=== PATIENT | male | born 1965 | race African-American/Black ===

== ENCOUNTER 2018-04-16 15:14 | Inpatient (IN) | payer OTHER ==
[2018-04-16 16:00] VITALS: BMI 22.7
--- NOTE | 2018-04-16 19:55 | HP ---
CIWA Score - CIWA Score Nausea/Vomitin-Mild Nausea/No Vomiting Muscle Tremors: 2 Anxiety: 2 Agitation: 1-Slight > Activity Paroxysmal Sweats: 1-Minimal Palms Moist Orientation: 1-Uncertain about Date Tacttile Disturbances: 1-Very Mild Itch/Numbness Auditory Disturbances: 1-Very Mild Visual Disturbances: 1-Very Mild Sensitivity Headache: 1-Very Mild CIWA-Ar Total Score: 12 Admission ROS S - HPI Chief Complaint: WITHDRAWAL SYMPTOMS Allergies/Adverse Reactions: Allergies Allergy/AdvReac Type Severity Reaction Status Date / Time No Known Allergies Allergy Verified 04/16/18 19:53 History of Present Illness: 52 Y.O. MAN WITH AN EXTENSIVE HISTORY OF ALCOHOL AND COCAINE DEPENDENCE IS HERE SEEKING DETOX. HIS LAST ADMISSION TO DETOX WAS HERE IN 2010. LONGEST PERIOD OF SOBRIETY HAS BEEN 3 YEARS. Exam Limitations: No Limitations - Ebola screening Have you traveled outside of the country in the last 21 days: No Have you had contact with anyone from an Ebola affected area: No Have you been sick,other than usual withdrawal symptoms: No - Review of Systems Constitutional: Chills, Diaphoresis, Loss of Appetite, Unintentional Wgt. Loss EENT: reports: Tearing, Nose Congestion Respiratory: reports: Shortness of Breath Cardiac: reports: No Symptoms Reported GI: reports: Diarrhea, Abdominal cramping : reports: No Symptoms Reported Musculoskeletal: reports: Joint Pain Integumentary: reports: No Symptoms Reported Neuro: reports: Headache, Other (ALCOHOL RELATED SYNCOPE) Endocrine: reports: No Symptoms Reported Hematology: reports: No Symptoms Reported Psychiatric: reports: Mood/Affect Appropiate, Anxious Other Systems: Reviewed and Negative Patient History - Patient Medical History Hx Anemia: No Hx Asthma: Yes (ALBUTEROL ) Hx Chronic Obstructive Pulmonary Disease (COPD): No Hx Cancer: No Hx Cardiac Disorders: No Hx Congestive Heart Failure: No Hx Hypertension: No Hx Hypercholesterolemia: No Hx Pacemaker: No HX Cerebrovascular Accident: No Hx Seizures: No (H/O BLACKOUTS) Hx Dementia: No Hx Diabetes: No Hx Gastrointestinal Disorders: No Hx Liver Disease: No Hx Genitourinary Disorders: No Hx Sexually Transmitted Disorders: No Hx Renal Disease (ESRD): No Hx Thyroid Disease: No Hx Human Immunodeficiency Virus (HIV): Yes (DX: 1993 CD4:325 2 MONTHS AGO ) Hx Hepatitis C: No Hx Depression: Yes Hx Suicide Attempt: No Hx Bipolar Disorder: No Hx Schizophrenia: No - Patient Surgical History Past Surgical History: Yes Other Surgical History: Hemangioma of face Anesthesia Reaction: No - PPD History Previous Implant?: Yes Documented Results: Positive w/o proof Implanted On Prior [facility] Admission?: No Results: NEED CXR PPD to be Administered?: No - Reproductive History Patient : No - Smoking Cessation Smoking history: Current every day smoker Have you smoked in the past 12 months: Yes Aproximately how many cigarettes per day: 10 Hx Chewing Tobacco Use: No Initiated information on smoking cessation: Yes 'Breaking Loose' booklet given: 04/16/18 - Substance & Tx. History Hx Alcohol Use: Yes Hx Substance Use: Yes Substance Use Type: Alcohol, Cocaine Hx Substance Use Treatment: Yes (DETOX: 02/2011) - Substances Abused Alcohol Route: Oral Frequency: Daily Amount used: 5TH VODKA- 2/6 PACK BEER Age of first use: 26 Date of Last Use: 04/16/18 Cocaine Route: Smoking Frequency: Daily Amount used: $200 Age of first use: 20 Date of Last Use: 04/16/18 Family Disease History - Family Disease History Family Disease History: Diabetes: Grandparent ( ), Mother ( ), Heart Disease: Grandparent, Father ( ), CA: Mother, Respiratory: Grandparent, Mother, Other: Father Admission Physical Exam S - Vital Signs Vital Signs: Vital Signs - 24 hr 04/16/18 15:58 Temperature 97.9 F Pulse Rate 100 H Respiratory 21 H Rate Blood Pressure 110/66 - Physical General Appearance: Yes: Sweating, Anxious HEENTM: Yes: Hearing grossly Normal, Muffled/Hoarse Voice, Other (MISSING TEETH ; MULTIPLE FACIAL SX FOR HEMANGIOMA REMOVAL) Respiratory: Yes: Wheezing Neck: Yes: No masses,lesions,Nodules, Trachea in good position Breast: Yes: Breast Exam Deferred Cardiology: Yes: Regular Rhythm, Regular Rate Abdominal: Yes: Normal Bowel Sounds, Non Tender, Flat, Soft Genitourinary: Yes: Within Normal Limits Back: Yes: Within Normal Limits, Normal Inspection Musculoskeletal: Yes: full range of Motion, Gait Steady, Pelvis Stable Extremities: Yes: Normal Capillary Refill, Normal Inspection, Normal Range of Motion, Non-Tender 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, Fully Oriented, Alert, Normal Mood/ Affect, Normal Response Integumentary: Yes: Normal Color, Dry, Warm Lymphatic: Yes: Within Normal Limits - Diagnostic (1) Hemangioma of face Current Visit: Yes Status: Chronic (2) HIV (human immunodeficiency virus infection) Current Visit: Yes Status: Chronic (3) Asthma Current Visit: Yes Status: Chronic (4) Syncope Current Visit: Yes Status: Chronic (5) Nicotine dependence Current Visit: Yes Status: Chronic (6) Cocaine dependence in controlled environment Current Visit: Yes Status: Acute (7) History of positive PPD Current Visit: Yes Status: Chronic Cleared for Admission [facility] - Detox or Rehab [facility] Level of Care: Medically Managed Detox Regimen/Protocol: Librium [facility] Breath Alcohol Content Breath Alcohol Content: 0.043 Urine Drug Screen - Results Drug Screen Negative: No Urine Drug Screen Results: HELGA-Cocaine
[2018-04-16] MEDS ORDERED: P-EPHED 60MG/TRIPROLIDI 2.5MG TABLET PO PRN (20:07)
[2018-04-16] MEDS ORDERED: MAGNESIUM HYDROX 2400MG/30ML ORAL SUSPENSION 30 ML CUP PO PRN (20:07)
[2018-04-16] MEDS ORDERED: IBUPROFEN 400 MG TABLET (FP) PO PRN (20:07)
[2018-04-16] MEDS ORDERED: chlordiazePOXIDE HCL 25 MG CAPSULE PO PRN (20:07)
[2018-04-16] MEDS ORDERED: MENTHOL/PHENOL 1 EACH UD MM PRN (20:07)
[2018-04-16] MEDS ORDERED: MAGNESIUM CITRATE 300 ML BOTTLE PO PRN (20:07)
[2018-04-16] MEDS ORDERED: MAG HYDROX/AL HYDROX/SIMETH 30 ML UNIT-DOSE CUP PO PRN (20:07)
[2018-04-16] MEDS ORDERED: hydrOXYzine PAMOATE 50 MG CAPSULE (FP) PO PRN (20:07)
[2018-04-16] MEDS ORDERED: ACETAMINOPHEN 325 MG TABLET (FP) PO PRN (20:07)
[2018-04-16] MEDS ORDERED: guaiFENesin/D-METHORPHAN HB 10 ML UNIT-DOSE CUPS PO PRN (20:07)
[2018-04-16] MEDS ORDERED: LOPERAMIDE HCL 2 MG CAPSULE PO PRN (20:07)
[2018-04-16] MEDS ORDERED: ALBUTEROL SO4 8 GM HFA INHALER IH PRN (20:09)
[2018-04-16] MEDS ORDERED: chlordiazePOXIDE HCL 25 MG CAPSULE PO ONE (20:30)
[2018-04-16] MEDS ORDERED: MELATONIN 5 MG TABLETS PO PRN (22:00)
[2018-04-16] MEDS: chlordiazePOXIDE HCL 25 MG CAPSULE PO SCH (22:39)
[2018-04-16] MEDS: THIAMINE HCL 100 MG TABLET (FP) PO SCH (22:39)
[2018-04-17] MEDS: chlordiazePOXIDE HCL 25 MG CAPSULE PO SCH ×4 (05:37→22:06)
[2018-04-17] MEDS: NICOTINE 14 MG/24 HOURS TOPICAL PATCH TD SCH (10:49)
[2018-04-17] MEDS: DARUNAVIR ETHANOLATE 800 MG TAB PO SCH (10:49)
[2018-04-17] MEDS: PRENATAL VITAMINS W/ FOLIC ACID TABLET (FP) PO SCH (10:49)
[2018-04-17 10:50] LABS: HEMATOCRIT 43.4 % (35.4-49); HEMOGLOBIN 14.2 GM/dL (11.7-16.9); MCH 30.3 pg (25.7-33.7); MCHC 32.6 g/dl (32.0-35.9); MEAN CELL VOLUME 93.1 fl (80-96); MEAN PLT VOLUME 11.1 fl (7.5-11.1); PLATELET COUNT 165 K/MM3 (134-434); RBC 4.67 M/mm3 (4.00-5.60); WHITE BLOOD COUNT 3.8 K/mm3 (4.0-10.0)
[2018-04-17] MEDS: EMTRICITABINE 200MG/TENOFOVIR 300MG PO SCH (10:50)
[2018-04-17] MEDS: RITONAVIR 100 MG TABLET PO SCH (10:51)
[2018-04-17 10:52] LABS: URINE APPEARANCE TURBID; URINE BILIRUBIN NEGATIVE (<2.0 mg/dL); URINE GLUCOSE (UA) NEGATIVE (NEGATIVE); URINE KETONE NEGATIVE (NEGATIVE); URINE LEUK ESTERASE NEGATIVE (NEGATIVE); URINE NITRITE NEGATIVE (NEGATIVE); URINE PROTEIN NEGATIVE (NEGATIVE); URINE UROBILINOGEN NEGATIVE mg/dL (0.2-1.0)
[2018-04-17] MEDS: NICOTINE POLACRILEX 2 MG GUM BC PRN (10:55)
[2018-04-17 11:09] LABS: URINE COLOR YELLOW
[2018-04-17 11:32] LABS: ALBUMIN 3.2 g/dl (3.4-5.0); ALK PHOS 131 U/L (45-117); ANION GAP 10 MMOL/L (8-16); BILIRUBIN,TOTAL 0.7 mg/dL (0.2-1); BLOOD UREA NITROGEN 14 mg/dL (7-18); CALCIUM 8.8 mg/dL (8.5-10.1); CHLORIDE 104 mmol/L (98-107); CO2 27 mmol/L (21-32); CREATININE 1.1 mg/dL (0.55-1.3); GLUCOSE,RANDOM 72 mg/dL (74-106); POTASSIUM 4.1 mmol/L (3.5-5.1); SGOT/AST 37 U/L (15-37); SGPT/ALT 26 U/L (13-61); SODIUM 140 mmol/L (136-145); TOT PROT 7.9 g/dl (6.4-8.2)
--- NOTE | 2018-04-17 12:11 | PN ---
S CIWA - CIWA Score Nausea/Vomitin Muscle Tremors: 2 Anxiety: 2 Agitation: 2 Paroxysmal Sweats: 2 Orientation: 0-Oriented Tacttile Disturbances: 2-Mild Itch/Numbness/Burn Auditory Disturbances: 0-None Visual Disturbances: 0-None Headache: 2-Mild CIWA-Ar Total Score: 14 S Progress Note (SOAP) Subjective: Interrupted sleep, muscle ache and tremors Objective: 04/17/18 12:09 Vital Signs - 8 hr 04/17/18 04/17/18 06:00 10:08 Temperature 97.7 F 97.5 F L Pulse Rate 91 H 80 Respiratory 16 18 Rate Blood Pressure 123/78 129/87 Laboratory Last Values WBC 3.8 K/mm3 (4.0-10.0) L 04/17/18 07:50 RBC 4.67 M/mm3 (4.00-5.60) 04/17/18 07:50 Hgb 14.2 GM/dL (11.7-16.9) 04/17/18 07:50 Hct 43.4 % (35.4-49) 04/17/18 07:50 MCV 93.1 fl (80-96) 04/17/18 07:50 MCH 30.3 pg (25.7-33.7) 04/17/18 07:50 MCHC 32.6 g/dl (32.0-35.9) 04/17/18 07:50 RDW 14.0 % (11.9-15.9) 04/17/18 07:50 Plt Count 165 K/MM3 (134-434) 04/17/18 07:50 MPV 11.1 fl (7.5-11.1) 04/17/18 07:50 Sodium 140 mmol/L (136-145) 04/17/18 07:50 Potassium 4.1 mmol/L (3.5-5.1) 04/17/18 07:50 Chloride 104 mmol/L (98-107) 04/17/18 07:50 Carbon Dioxide 27 mmol/L (21-32) 04/17/18 07:50 Anion Gap 10 MMOL/L (8-16) 04/17/18 07:50 BUN 14 mg/dL (7-18) 04/17/18 07:50 Creatinine 1.1 mg/dL (0.55-1.3) 04/17/18 07:50 Creat Clearance w eGFR > 60 (>60) 04/17/18 07:50 Random Glucose 72 mg/dL (74-106) L 04/17/18 07:50 Calcium 8.8 mg/dL (8.5-10.1) 04/17/18 07:50 Total Bilirubin 0.7 mg/dL (0.2-1) 04/17/18 07:50 AST 37 U/L (15-37) 04/17/18 07:50 ALT 26 U/L (13-61) 04/17/18 07:50 Alkaline Phosphatase 131 U/L (45-117) H 04/17/18 07:50 Total Protein 7.9 g/dl (6.4-8.2) 04/17/18 07:50 Albumin 3.2 g/dl (3.4-5.0) L 04/17/18 07:50 Urine Color Yellow 04/17/18 08:50 Urine Appearance Turbid 04/17/18 08:50 Urine pH 5.0 (5.0-8.0) 04/17/18 08:50 Ur Specific [place] 1.015 (1.001-1.035) 04/17/18 08:50 Urine Protein Negative (NEGATIVE) 04/17/18 08:50 Urine Glucose (UA) Negative (NEGATIVE) 04/17/18 08:50 Urine Ketones Negative (NEGATIVE) 04/17/18 08:50 Urine Blood Negative (NEGATIVE) 04/17/18 08:50 Urine Nitrite Negative (NEGATIVE) 04/17/18 08:50 Urine Bilirubin Negative (<2.0 mg/dL) 04/17/18 08:50 Urine Urobilinogen Negative mg/dL (0.2-1.0) 04/17/18 08:50 Ur Leukocyte Esterase Negative (NEGATIVE) 04/17/18 08:50 Lbas noted Assessment: 04/17/18 12:10 Withdrawal sx Plan: Continue detox
--- NOTE | 2018-04-17 15:41 | EKG ---
Test Reason : Blood Pressure : / mmHG Vent. Rate : 099 BPM Atrial Rate : 099 BPM P-R Int : 140 ms QRS Dur : 082 ms QT Int : 344 ms P-R-T Axes : 052 049 028 degrees QTc Int : 441 ms NORMAL SINUS RHYTHM T WAVE ABNORMALITY, CONSIDER ANTERIOR ISCHEMIA ABNORMAL ECG NO PREVIOUS ECGS AVAILABLE Confirmed by MD Ronnie, Kory ([id number]) on 04/17/2018 3:40:53 PM Referred By: Confirmed By:Kory Trujillo MD
--- NOTE | 2018-04-17 18:00 | CONSULT ---
[facility] Psychiatric Consult - Data Date of interview: 04/17/18 Admission source: [facility] Identifying data: Readmission to [facility] for this 52 y/o AA male self- referred for detoxification treatment (alcohol,cocaine dependence).Admitted to [address] [place] [address].Patient is single,a father of one,domiciled,unemployed and supported on SSI benefits. Substance Abuse History: Confirmed by the patient in this session.Details in current [facility] report : Smoking history: Current every day smoker. Have you smoked in the past 12 months: Yes. Aproximately how many cigarettes per day: 10. Hx Chewing Tobacco Use: No. Initiated information on smoking cessation: Yes. 'Breaking Loose' booklet given: 04/16/18. - Substance & Tx. History. Hx Alcohol Use: Yes. Hx Substance Use: Yes. Substance Use Type: Alcohol, Cocaine. Hx Substance Use Treatment: Yes (DETOX: 02/2011). - Substances Abused. Alcohol. Route: Oral. Frequency: Daily. Amount used: 5TH VODKA- 2 /6 PACK BEER. Age of first use: 26. Date of Last Use: 04/16/18. Cocaine. Route: Smoking. Frequency: Daily. Amount used: $200. Age of first use: 20. Date of Last Use: 04/16/18 Medical History: HIV infection since 1993 (on HAART medications),bronchial asthma and a history of surgery for facial hemangioma. Psychiatric History: No reported history of psychiatric hospitalizations.Patient states that he has been diagnosed with Bipolar Disorder.Mr Peterson is currently seeing a psychiatrist at the [facility] in the [place].Prescribed seroquel 50 mg/hs.Patient denies history of suicide attempts. Physical/Sexual Abuse/Trauma History: Patient denies. Additional Comment: Urine Drug Screen Results: HELGA-Cocaine.Noted. Mental Status Exam - Mental Status Exam Alert and Oriented to: Time, Place, Person Cognitive Function: Good Patient Appearance: Well Groomed (poor oral hygiene) Mood: Hopeful, Euthymic Affect: Appropriate, Normal Range Patient Behavior: Appropriate (pleasant), Cooperative Speech Pattern: Clear Voice Loudness: Normal Thought Process: Intact, Goal Oriented Thought Disorder: Not Present Hallucinations: Denies Suicidal Ideation: Denies Homicidal Ideation: Denies Insight/Judgement: Poor Sleep: Poorly, Difficulty falling asleep Appetite: Good Muscle strength/Tone: Normal Gait/Station: Normal Psychiatric Findings - Problem List ([place] 1, 2,3) (1) Alcohol dependence with withdrawal Current Visit: Yes Status: Acute Qualifiers: Complication of substance-induced condition: uncomplicated Qualified Code(s ): F10.230 - Alcohol dependence with withdrawal, uncomplicated (2) Cocaine dependence in controlled environment Current Visit: Yes Status: Acute (3) Nicotine dependence Current Visit: Yes Status: Acute Qualifiers: Nicotine product type: cigarettes Substance use status: uncomplicated Qualified Code(s): F17.210 - Nicotine dependence, cigarettes, uncomplicated (4) Insomnia Current Visit: Yes Status: Acute - Initial Treatment Plan Initial Treatment Plan: Psychoeducation.Sleep hygiene.Detoxification in progress.Seroquel 50 mg po hs.Side effects/benefits discussed with the patient.Mr Peterson is in agreement with this careplan.Observation.
[2018-04-17] MEDS: THIAMINE HCL 100 MG TABLET (FP) PO SCH (22:06)
[2018-04-17] MEDS: QUEtiapine FUMARATE 50 MG TABLET PO SCH (22:06)
[2018-04-18] MEDS: chlordiazePOXIDE HCL 25 MG CAPSULE PO SCH ×3 (05:35→17:30)
[2018-04-18] MEDS: NICOTINE 14 MG/24 HOURS TOPICAL PATCH TD SCH (10:40)
[2018-04-18] MEDS: EMTRICITABINE 200MG/TENOFOVIR 300MG PO SCH (10:40)
[2018-04-18] MEDS: DARUNAVIR ETHANOLATE 800 MG TAB PO SCH (10:40)
[2018-04-18] MEDS: PRENATAL VITAMINS W/ FOLIC ACID TABLET (FP) PO SCH (10:41)
[2018-04-18] MEDS: RITONAVIR 100 MG TABLET PO SCH (10:41)
[2018-04-18] MEDS: NICOTINE POLACRILEX 2 MG GUM BC PRN ×2 (10:44→22:42)
--- NOTE | 2018-04-18 16:28 | PN ---
S CIWA - CIWA Score Nausea/Vomitin-Mild Nausea/No Vomiting Muscle Tremors: 4-Moderate,w/Arms Extend Anxiety: 3 Agitation: 2 Paroxysmal Sweats: 1-Minimal Palms Moist Orientation: 0-Oriented Tacttile Disturbances: 1-Very Mild Itch/Numbness Auditory Disturbances: 0-None Visual Disturbances: 0-None Headache: 0-None Present CIWA-Ar Total Score: 12 [facility] Progress Note (SOAP) Subjective: sweat tremor restlessness anxiety Objective: 04/18/18 16:27 Vital Signs Temperature 97.9 F 04/18/18 15:05 Pulse Rate 100 H 04/18/18 15:05 Respiratory Rate 18 04/18/18 15:05 Blood Pressure 121/82 04/18/18 15:05 O2 Sat by Pulse Oximetry (%) Laboratory Last Values WBC 3.8 K/mm3 (4.0-10.0) L 04/17/18 07:50 RBC 4.67 M/mm3 (4.00-5.60) 04/17/18 07:50 Hgb 14.2 GM/dL (11.7-16.9) 04/17/18 07:50 Hct 43.4 % (35.4-49) 04/17/18 07:50 MCV 93.1 fl (80-96) 04/17/18 07:50 MCH 30.3 pg (25.7-33.7) 04/17/18 07:50 MCHC 32.6 g/dl (32.0-35.9) 04/17/18 07:50 RDW 14.0 % (11.9-15.9) 04/17/18 07:50 Plt Count 165 K/MM3 (134-434) 04/17/18 07:50 MPV 11.1 fl (7.5-11.1) 04/17/18 07:50 Sodium 140 mmol/L (136-145) 04/17/18 07:50 Potassium 4.1 mmol/L (3.5-5.1) 04/17/18 07:50 Chloride 104 mmol/L (98-107) 04/17/18 07:50 Carbon Dioxide 27 mmol/L (21-32) 04/17/18 07:50 Anion Gap 10 MMOL/L (8-16) 04/17/18 07:50 BUN 14 mg/dL (7-18) 04/17/18 07:50 Creatinine 1.1 mg/dL (0.55-1.3) 04/17/18 07:50 Creat Clearance w eGFR > 60 (>60) 04/17/18 07:50 Random Glucose 72 mg/dL (74-106) L 04/17/18 07:50 Calcium 8.8 mg/dL (8.5-10.1) 04/17/18 07:50 Total Bilirubin 0.7 mg/dL (0.2-1) 04/17/18 07:50 AST 37 U/L (15-37) 04/17/18 07:50 ALT 26 U/L (13-61) 04/17/18 07:50 Alkaline Phosphatase 131 U/L (45-117) H 04/17/18 07:50 Total Protein 7.9 g/dl (6.4-8.2) 04/17/18 07:50 Albumin 3.2 g/dl (3.4-5.0) L 04/17/18 07:50 Urine Color Yellow 04/17/18 08:50 Urine Appearance Turbid 04/17/18 08:50 Urine pH 5.0 (5.0-8.0) 04/17/18 08:50 Ur Specific [place] 1.015 (1.001-1.035) 04/17/18 08:50 Urine Protein Negative (NEGATIVE) 04/17/18 08:50 Urine Glucose (UA) Negative (NEGATIVE) 04/17/18 08:50 Urine Ketones Negative (NEGATIVE) 04/17/18 08:50 Urine Blood Negative (NEGATIVE) 04/17/18 08:50 Urine Nitrite Negative (NEGATIVE) 04/17/18 08:50 Urine Bilirubin Negative (<2.0 mg/dL) 04/17/18 08:50 Urine Urobilinogen Negative mg/dL (0.2-1.0) 04/17/18 08:50 Ur Leukocyte Esterase Negative (NEGATIVE) 04/17/18 08:50 RPR Titer Nonreactive (NONREACTIVE) 04/17/18 07:50 lab noted Assessment: 04/18/18 16:28 withdrawal sx Plan: continue detox
[2018-04-18] MEDS: chlordiazePOXIDE 5 MG CAPSULE PO SCH (22:41)
[2018-04-18] MEDS: THIAMINE HCL 100 MG TABLET (FP) PO SCH (22:41)
[2018-04-18] MEDS: QUEtiapine FUMARATE 50 MG TABLET PO SCH (22:41)
[2018-04-19] MEDS: chlordiazePOXIDE 5 MG CAPSULE PO SCH ×3 (05:54→17:56)
[2018-04-19] MEDS: PRENATAL VITAMINS W/ FOLIC ACID TABLET (FP) PO SCH (10:14)
[2018-04-19] MEDS: RITONAVIR 100 MG TABLET PO SCH (10:14)
[2018-04-19] MEDS: EMTRICITABINE 200MG/TENOFOVIR 300MG PO SCH (10:14)
[2018-04-19] MEDS: DARUNAVIR ETHANOLATE 800 MG TAB PO SCH (10:14)
[2018-04-19] MEDS: NICOTINE 14 MG/24 HOURS TOPICAL PATCH TD SCH (10:15)
[2018-04-19] MEDS: NICOTINE POLACRILEX 2 MG GUM BC PRN (10:16)
--- NOTE | 2018-04-19 15:22 | PN ---
[facility] Progress Note (SOAP) Subjective: Occ nausea. Denies vomiting or diarrhea. Still having some shakes. Objective: A & O x3. Abd S/NT. BS+. Mild tremors of hands. 04/19/18 15:21 Vital Signs 04/19/18 04/19/18 09:16 13:52 Temperature 97.5 F L 97.3 F L Pulse Rate 91 H 111 H Respiratory 16 18 Rate Blood Pressure 100/60 111/72 Laboratory Tests 04/17/18 04/17/18 04/17/18 07:50 07:50 07:50 WBC 3.8 L RBC 4.67 Hgb 14.2 Hct 43.4 MCV 93.1 MCH 30.3 MCHC 32.6 RDW 14.0 Plt Count 165 MPV 11.1 Sodium 140 Potassium 4.1 Chloride 104 Carbon Dioxide 27 Anion Gap 10 BUN 14 Creatinine 1.1 Creat Clearance w eGFR > 60 Random Glucose 72 L Calcium 8.8 Total Bilirubin 0.7 AST 37 ALT 26 Alkaline Phosphatase 131 H Total Protein 7.9 Albumin 3.2 L Urine Color Urine Appearance Urine pH Ur Specific [place] Urine Protein Urine Glucose (UA) Urine Ketones Urine Blood Urine Nitrite Urine Bilirubin Urine Urobilinogen Ur Leukocyte Esterase RPR Titer Nonreactive 04/17/18 08:50 WBC RBC Hgb Hct MCV MCH MCHC RDW Plt Count MPV Sodium Potassium Chloride Carbon Dioxide Anion Gap BUN Creatinine Creat Clearance w eGFR Random Glucose Calcium Total Bilirubin AST ALT Alkaline Phosphatase Total Protein Albumin Urine Color Yellow Urine Appearance Turbid Urine pH 5.0 Ur Specific [place] 1.015 Urine Protein Negative Urine Glucose (UA) Negative Urine Ketones Negative Urine Blood Negative Urine Nitrite Negative Urine Bilirubin Negative Urine Urobilinogen Negative Ur Leukocyte Esterase Negative RPR Titer Labs reviewed. Assessment: Withdrawal symptoms. Plan: Continue detox.
[2018-04-19] MEDS: chlordiazePOXIDE HCL 10 MG CAPSULE PO SCH (22:26)
[2018-04-19] MEDS: THIAMINE HCL 100 MG TABLET (FP) PO SCH (22:26)
[2018-04-19] MEDS: QUEtiapine FUMARATE 50 MG TABLET PO SCH (22:26)
[2018-04-20] MEDS: chlordiazePOXIDE HCL 10 MG CAPSULE PO SCH (06:17)
--- NOTE | 2018-04-20 08:31 | DS ---
[facility] Detox Discharge Summary Admission Date: 04/16/18 Discharge Date: 04/20/18 - History Present History: Alcohol Dependence Additional Comments: 52 years old male admitted 04/16/18 for alcohol withdrawal sx completed detox regimen tolerated well denies alcohol withdrawal sx alert oriented x 3 no acute distress aftercare [facility] - Physical Exam Results Vital Signs: Vital Signs Temperature 97.2 F L 04/20/18 06:51 Pulse Rate 71 04/20/18 06:51 Respiratory Rate 20 04/20/18 06:51 Blood Pressure 107/72 04/20/18 06:51 O2 Sat by Pulse Oximetry (%) Pertinent Admission Physical Exam Findings: alcohol withdrawal sx Vital Signs Temperature 96.9 F L 04/20/18 13:11 Pulse Rate 105 H 04/20/18 13:11 Respiratory Rate 18 04/20/18 13:11 Blood Pressure 112/64 04/20/18 13:11 O2 Sat by Pulse Oximetry (%) Laboratory Last Values WBC 3.8 K/mm3 (4.0-10.0) L 04/17/18 07:50 RBC 4.67 M/mm3 (4.00-5.60) 04/17/18 07:50 Hgb 14.2 GM/dL (11.7-16.9) 04/17/18 07:50 Hct 43.4 % (35.4-49) 04/17/18 07:50 MCV 93.1 fl (80-96) 04/17/18 07:50 MCH 30.3 pg (25.7-33.7) 04/17/18 07:50 MCHC 32.6 g/dl (32.0-35.9) 04/17/18 07:50 RDW 14.0 % (11.9-15.9) 04/17/18 07:50 Plt Count 165 K/MM3 (134-434) 04/17/18 07:50 MPV 11.1 fl (7.5-11.1) 04/17/18 07:50 Sodium 140 mmol/L (136-145) 04/17/18 07:50 Potassium 4.1 mmol/L (3.5-5.1) 04/17/18 07:50 Chloride 104 mmol/L (98-107) 04/17/18 07:50 Carbon Dioxide 27 mmol/L (21-32) 04/17/18 07:50 Anion Gap 10 MMOL/L (8-16) 04/17/18 07:50 BUN 14 mg/dL (7-18) 04/17/18 07:50 Creatinine 1.1 mg/dL (0.55-1.3) 04/17/18 07:50 Creat Clearance w eGFR > 60 (>60) 04/17/18 07:50 Random Glucose 72 mg/dL (74-106) L 04/17/18 07:50 Calcium 8.8 mg/dL (8.5-10.1) 04/17/18 07:50 Total Bilirubin 0.7 mg/dL (0.2-1) 04/17/18 07:50 AST 37 U/L (15-37) 04/17/18 07:50 ALT 26 U/L (13-61) 04/17/18 07:50 Alkaline Phosphatase 131 U/L (45-117) H 04/17/18 07:50 Total Protein 7.9 g/dl (6.4-8.2) 04/17/18 07:50 Albumin 3.2 g/dl (3.4-5.0) L 04/17/18 07:50 Urine Color Yellow 04/17/18 08:50 Urine Appearance Turbid 04/17/18 08:50 Urine pH 5.0 (5.0-8.0) 04/17/18 08:50 Ur Specific [place] 1.015 (1.001-1.035) 04/17/18 08:50 Urine Protein Negative (NEGATIVE) 04/17/18 08:50 Urine Glucose (UA) Negative (NEGATIVE) 04/17/18 08:50 Urine Ketones Negative (NEGATIVE) 04/17/18 08:50 Urine Blood Negative (NEGATIVE) 04/17/18 08:50 Urine Nitrite Negative (NEGATIVE) 04/17/18 08:50 Urine Bilirubin Negative (<2.0 mg/dL) 04/17/18 08:50 Urine Urobilinogen Negative mg/dL (0.2-1.0) 04/17/18 08:50 Ur Leukocyte Esterase Negative (NEGATIVE) 04/17/18 08:50 RPR Titer Nonreactive (NONREACTIVE) 04/17/18 07:50 lab noted - Treatment Hospital Course: Detox Protocol Followed, Detoxed Safely, Responded well, Discharged Condition Good, Rehab Referral Accepted Patient has Accepted a Rehab Referral to: [facility] - Medication Discharge Medications: Ambulatory Orders Darunavir Ethanolate [Prezista] 800 mg PO DAILY 04/16/18 Emtricitabine/Tenofovir [Truvada -] 1 tab PO DAILY 04/16/18 Ritonavir [Norvir -] 100 mg PO DAILY 04/16/18 Quetiapine Fumarate [Seroquel -] 50 mg PO HS #30 tablet 04/17/18 - Diagnosis (1) Alcohol dependence with withdrawal Current Visit: Yes Status: Acute Qualifiers: Complication of substance-induced condition: uncomplicated Qualified Code(s ): F10.230 - Alcohol dependence with withdrawal, uncomplicated (2) Nicotine dependence Current Visit: Yes Status: Acute Qualifiers: Nicotine product type: cigarettes Substance use status: in withdrawal Qualified Code(s): F17.213 - Nicotine dependence, cigarettes, with withdrawal (3) Asthma Current Visit: Yes Status: Chronic Qualifiers: Asthma severity: mild Asthma persistence: intermittent Asthma complication type: uncomplicated Qualified Code(s): J45.20 - Mild intermittent asthma, uncomplicated (4) HIV (human immunodeficiency virus infection) Current Visit: Yes Status: Chronic - AMA Did Patient Leave Against Medical Advice: No
[2018-04-20] MEDS: DARUNAVIR ETHANOLATE 800 MG TAB PO SCH (09:39)
[2018-04-20] MEDS: RITONAVIR 100 MG TABLET PO SCH (09:40)
[2018-04-20] MEDS: EMTRICITABINE 200MG/TENOFOVIR 300MG PO SCH (09:40)
[2018-04-20] MEDS: NICOTINE 14 MG/24 HOURS TOPICAL PATCH TD SCH (09:41)
[2018-04-20] MEDS: PRENATAL VITAMINS W/ FOLIC ACID TABLET (FP) PO SCH (09:41)
[2018-04-20 13:12] VITALS: BP 112/64; PULSE 105; TEMP 96.9
== END 2018-04-20 05:48 | disposition other institution (70) | DRG 774 ==
LOC: YASAS 15:14 → Y6N 18:35
PROC: HZ2ZZZZ Detoxification Services for Substance Abuse Treatment (ICD-10-PCS; principal; 2018-04-16)
DX: F10.230 Alcohol dependence with withdrawal, uncomplicated (principal); F14.20 Cocaine dependence, uncomplicated; F17.213 Nicotine dependence, cigarettes, with withdrawal; F32.9 Major depressive disorder, single episode, unspecified; Z21 Asymptomatic human immunodeficiency virus [HIV] infection status; J45.20 Mild intermittent asthma, uncomplicated; G47.00 Insomnia, unspecified; D18.09 Hemangioma of other sites; R55 Syncope and collapse; R76.11 Nonspecific reaction to tuberculin skin test without active tuberculosis
CPT/HCPCS: 36415; 71046-TC-FY; 80053; 81003; 85027; 86593; 93005; 93010

== ENCOUNTER 2018-04-20 17:56 | Inpatient (IN) | payer OTHER ==
[2018-04-20] MEDS ORDERED: LOPERAMIDE HCL 2 MG CAPSULE PO PRN (18:16)
[2018-04-20] MEDS ORDERED: MAGNESIUM HYDROX 2400MG/30ML ORAL SUSPENSION 30 ML CUP PO PRN (18:16)
[2018-04-20] MEDS ORDERED: MAGNESIUM CITRATE 300 ML BOTTLE PO PRN (18:16)
[2018-04-20] MEDS ORDERED: P-EPHED 60MG/TRIPROLIDI 2.5MG TABLET PO PRN (18:16)
[2018-04-20] MEDS ORDERED: MAG HYDROX/AL HYDROX/SIMETH 30 ML UNIT-DOSE CUP PO PRN (18:16)
[2018-04-20] MEDS ORDERED: MENTHOL/PHENOL 1 EACH UD MM PRN (18:16)
[2018-04-20] MEDS ORDERED: IBUPROFEN 400 MG TABLET (FP) PO PRN (18:16)
[2018-04-20] MEDS ORDERED: hydrOXYzine PAMOATE 50 MG CAPSULE (FP) PO PRN (18:16)
[2018-04-20] MEDS ORDERED: ACETAMINOPHEN 325 MG TABLET (FP) PO PRN (18:16)
[2018-04-20] MEDS ORDERED: guaiFENesin/D-METHORPHAN HB 10 ML UNIT-DOSE CUPS PO PRN (18:16)
[2018-04-20] MEDS: THIAMINE HCL 100 MG TABLET (FP) PO SCH (21:31)
[2018-04-20] MEDS ORDERED: MELATONIN 5 MG TABLETS PO PRN (22:00)
--- NOTE | 2018-04-21 06:47 | HP ---
Psychiatrist Admission - Data Date of interview: 04/21/18 Admission source: [facility]N Identifying data: This is the first [facility] admission for this 52 years old single Black male, father of a 32 years old daughter, unemployed on SSI, domiciled Medical History: Significant for HIV infection since 1993 (on HAART medications) , bronchial asthma, a history of treatment for PPD+ surgery for facial hemangioma. Smokes 10 cigarettes daily Psychiatric History: Reports that his first psychiatric contact was 4 years ago when he was at [facility] on [address] [facility]. He was diagnosed with MDD and started on Prozac 20 mg po daily. Reports taking that medication during the 3 years he was there. In January 2018 he saw a psychiatrist at [facility] in the [place] and was diagnosed with Bipolar Disorder ans prescribed Seroquel 50 mg po HS and Lamictal 25 mg po BID. He saw Dr Ballard on 04/17/18 while in detox and was continued on Seroquel. Denies history of previous hospitalization or suicidal attempt. At present, report doing well but sleeping poorly Physical/Sexual Abuse/Trauma History: Reports history of bullying when he was in school because of facial disfigurement due to hemangioma Additional Comment: Reports history of multiple previous arrests including 2 felony convictions for drug related charges. Denies being on parole/probatio at present Vital Signs: Vital Signs - 24 hr 04/20/18 04/21/18 04/21/18 18:50 00:30 03:30 Temperature 97.8 F Pulse Rate 105 H Respiratory 18 18 18 Rate Blood Pressure 110/75 Allergies/Adverse Reactions: Allergies Allergy/AdvReac Type Severity Reaction Status Date / Time No Known Allergies Allergy Verified 04/16/18 19:53 Date of last physical exam: 04/16/18 Concur with the findings of this exam: Yes - Substance Abuse/Tx History Hx Alcohol Use: Yes Hx Substance Use: Yes Substance Use Type: Alcohol (Started drinking alcohol at age 26, consumes a fifth of vodka & 2x 6pk of beere daily. Last drank on 04/16/18), Cocaine ( Started smoking crack cocaine at age 20 and consumes $200 worth daily. Last smoked on 04/16/18 ) Hx Substance Use Treatment: Yes (Multiple inpt detox & 5 inpt rehab admissions) Mental Status Exam - Mental Status Exam Alert and Oriented to: Time, Place, Person Cognitive Function: Fair Patient Appearance: Well Groomed Mood: Hopeful, Euthymic Affect: Appropriate Patient Behavior: Cooperative Speech Pattern: Clear Voice Loudness: Normal Thought Process: Intact Thought Disorder: Not Present Hallucinations: Denies Suicidal Ideation: Denies Homicidal Ideation: Denies Insight/Judgement: Fair Sleep: Poorly Appetite: Good Muscle strength/Tone: Normal Gait/Station: Normal Psychiatric Findings - Problem List ([place] 1, 2,3) (1) Alcohol dependence Current Visit: Yes Status: Acute (2) Cocaine dependence Current Visit: Yes Status: Acute (3) Nicotine dependence Current Visit: No Status: Chronic Qualifiers: Nicotine product type: cigarettes Substance use status: in withdrawal Qualified Code(s): F17.213 - Nicotine dependence, cigarettes, with withdrawal (4) Substance-induced sleep disorder Current Visit: Yes Status: Acute (5) Asthma Current Visit: No Status: Chronic Qualifiers: Asthma severity: mild Asthma persistence: intermittent Asthma complication type: uncomplicated Qualified Code(s): J45.20 - Mild intermittent asthma, uncomplicated (6) HIV (human immunodeficiency virus infection) Current Visit: No Status: Chronic (7) Hemangioma of face Current Visit: No Status: Chronic (8) History of positive PPD Current Visit: No Status: Chronic - Initial Treatment Plan Initial Treatment Plan: 1) Continue Seroquel 50 mg po HS. 2) Monitor progress
[2018-04-21] MEDS: EMTRICITABINE 200MG/TENOFOVIR 300MG PO SCH (10:27)
[2018-04-21] MEDS: NICOTINE POLACRILEX 2 MG GUM BUC PRN (10:27)
[2018-04-21] MEDS: NICOTINE 14 MG/24 HOURS TOPICAL PATCH TD SCH (10:27)
[2018-04-21] MEDS: DARUNAVIR ETHANOLATE 800 MG TAB PO SCH (10:27)
[2018-04-21] MEDS: RITONAVIR 100 MG TABLET PO SCH (10:27)
[2018-04-21] MEDS: PRENATAL VITAMINS W/ FOLIC ACID TABLET (FP) PO SCH (10:28)
[2018-04-21] MEDS: QUEtiapine FUMARATE 50 MG TABLET PO SCH (21:24)
[2018-04-21] MEDS: THIAMINE HCL 100 MG TABLET (FP) PO SCH (21:24)
[2018-04-22] MEDS: PRENATAL VITAMINS W/ FOLIC ACID TABLET (FP) PO SCH (10:30)
[2018-04-22] MEDS: RITONAVIR 100 MG TABLET PO SCH (10:30)
[2018-04-22] MEDS: DARUNAVIR ETHANOLATE 800 MG TAB PO SCH (10:30)
[2018-04-22] MEDS: EMTRICITABINE 200MG/TENOFOVIR 300MG PO SCH (10:30)
[2018-04-22] MEDS: NICOTINE 14 MG/24 HOURS TOPICAL PATCH TD SCH (10:31)
[2018-04-22] MEDS: NICOTINE POLACRILEX 2 MG GUM BUC PRN (10:31)
[2018-04-22] MEDS: THIAMINE HCL 100 MG TABLET (FP) PO SCH (21:30)
[2018-04-22] MEDS: QUEtiapine FUMARATE 50 MG TABLET PO SCH (21:30)
[2018-04-23] MEDS: ALBUTEROL SO4 8 GM HFA INHALER IH PRN ×2 (06:44→21:26)
[2018-04-23] MEDS: NICOTINE 14 MG/24 HOURS TOPICAL PATCH TD SCH (10:14)
[2018-04-23] MEDS: DARUNAVIR ETHANOLATE 800 MG TAB PO SCH (10:15)
[2018-04-23] MEDS: RITONAVIR 100 MG TABLET PO SCH (10:15)
[2018-04-23] MEDS: EMTRICITABINE 200MG/TENOFOVIR 300MG PO SCH (10:16)
[2018-04-23] MEDS: PRENATAL VITAMINS W/ FOLIC ACID TABLET (FP) PO SCH (10:16)
[2018-04-23] MEDS: QUEtiapine FUMARATE 50 MG TABLET PO SCH (21:26)
[2018-04-23] MEDS: THIAMINE HCL 100 MG TABLET (FP) PO SCH (21:26)
[2018-04-24] MEDS: PRENATAL VITAMINS W/ FOLIC ACID TABLET (FP) PO SCH (10:17)
[2018-04-24] MEDS: NICOTINE 14 MG/24 HOURS TOPICAL PATCH TD SCH (10:17)
[2018-04-24] MEDS: DARUNAVIR ETHANOLATE 800 MG TAB PO SCH (10:17)
[2018-04-24] MEDS: RITONAVIR 100 MG TABLET PO SCH (10:19)
[2018-04-24] MEDS: EMTRICITABINE 200MG/TENOFOVIR 300MG PO SCH (10:19)
[2018-04-24] MEDS: NICOTINE POLACRILEX 2 MG GUM BUC PRN ×2 (10:20→21:42)
[2018-04-24] MEDS: QUEtiapine FUMARATE 50 MG TABLET PO SCH (21:41)
[2018-04-24] MEDS: THIAMINE HCL 100 MG TABLET (FP) PO SCH (21:41)
[2018-04-25] MEDS: DARUNAVIR ETHANOLATE 800 MG TAB PO SCH (10:25)
[2018-04-25] MEDS: PRENATAL VITAMINS W/ FOLIC ACID TABLET (FP) PO SCH (10:26)
[2018-04-25] MEDS: RITONAVIR 100 MG TABLET PO SCH (10:26)
[2018-04-25] MEDS: NICOTINE 14 MG/24 HOURS TOPICAL PATCH TD SCH (10:26)
[2018-04-25] MEDS: EMTRICITABINE 200MG/TENOFOVIR 300MG PO SCH (10:26)
[2018-04-25] MEDS: ALBUTEROL SO4 8 GM HFA INHALER IH PRN (21:21)
[2018-04-25] MEDS: QUEtiapine FUMARATE 50 MG TABLET PO SCH (21:22)
[2018-04-25] MEDS: THIAMINE HCL 100 MG TABLET (FP) PO SCH (21:22)
[2018-04-26] MEDS: RITONAVIR 100 MG TABLET PO SCH (10:10)
[2018-04-26] MEDS: DARUNAVIR ETHANOLATE 800 MG TAB PO SCH (10:10)
[2018-04-26] MEDS: NICOTINE 14 MG/24 HOURS TOPICAL PATCH TD SCH (10:10)
[2018-04-26] MEDS: EMTRICITABINE 200MG/TENOFOVIR 300MG PO SCH (10:10)
[2018-04-26] MEDS: PRENATAL VITAMINS W/ FOLIC ACID TABLET (FP) PO SCH (10:10)
[2018-04-26] MEDS: NICOTINE POLACRILEX 2 MG GUM BUC PRN ×2 (10:12→21:24)
[2018-04-26] MEDS: ALBUTEROL SO4 8 GM HFA INHALER IH PRN ×2 (10:12→21:24)
[2018-04-26] MEDS: THIAMINE HCL 100 MG TABLET (FP) PO SCH (21:23)
[2018-04-26] MEDS: QUEtiapine FUMARATE 50 MG TABLET PO SCH (21:23)
[2018-04-27] MEDS: DARUNAVIR ETHANOLATE 800 MG TAB PO SCH (09:52)
[2018-04-27] MEDS: EMTRICITABINE 200MG/TENOFOVIR 300MG PO SCH (09:52)
[2018-04-27] MEDS: RITONAVIR 100 MG TABLET PO SCH (09:52)
[2018-04-27] MEDS: NICOTINE 14 MG/24 HOURS TOPICAL PATCH TD SCH (09:53)
[2018-04-27] MEDS: PRENATAL VITAMINS W/ FOLIC ACID TABLET (FP) PO SCH (09:53)
[2018-04-27] MEDS: NICOTINE POLACRILEX 2 MG GUM BUC PRN ×2 (09:53→21:17)
[2018-04-27] MEDS: ALBUTEROL SO4 8 GM HFA INHALER IH PRN ×2 (09:54→21:16)
[2018-04-27] MEDS: THIAMINE HCL 100 MG TABLET (FP) PO SCH (21:16)
[2018-04-27] MEDS: QUEtiapine FUMARATE 50 MG TABLET PO SCH (21:16)
[2018-04-28] MEDS: DARUNAVIR ETHANOLATE 800 MG TAB PO SCH (10:19)
[2018-04-28] MEDS: PRENATAL VITAMINS W/ FOLIC ACID TABLET (FP) PO SCH (10:19)
[2018-04-28] MEDS: NICOTINE 14 MG/24 HOURS TOPICAL PATCH TD SCH (10:19)
[2018-04-28] MEDS: RITONAVIR 100 MG TABLET PO SCH (10:19)
[2018-04-28] MEDS: EMTRICITABINE 200MG/TENOFOVIR 300MG PO SCH (10:19)
[2018-04-28] MEDS: QUEtiapine FUMARATE 50 MG TABLET PO SCH (21:22)
[2018-04-28] MEDS: THIAMINE HCL 100 MG TABLET (FP) PO SCH (21:23)
[2018-04-28] MEDS: ALBUTEROL SO4 8 GM HFA INHALER IH PRN (21:23)
[2018-04-28] MEDS: NICOTINE POLACRILEX 2 MG GUM BUC PRN (21:24)
[2018-04-29] MEDS: DARUNAVIR ETHANOLATE 800 MG TAB PO SCH (10:05)
[2018-04-29] MEDS: PRENATAL VITAMINS W/ FOLIC ACID TABLET (FP) PO SCH (10:05)
[2018-04-29] MEDS: EMTRICITABINE 200MG/TENOFOVIR 300MG PO SCH (10:06)
[2018-04-29] MEDS: RITONAVIR 100 MG TABLET PO SCH (10:06)
[2018-04-29] MEDS: NICOTINE 14 MG/24 HOURS TOPICAL PATCH TD SCH (10:06)
[2018-04-29] MEDS: ALBUTEROL SO4 8 GM HFA INHALER IH PRN ×2 (10:07→21:23)
[2018-04-29] MEDS: THIAMINE HCL 100 MG TABLET (FP) PO SCH (21:23)
[2018-04-29] MEDS: QUEtiapine FUMARATE 50 MG TABLET PO SCH (21:23)
[2018-04-29] MEDS: NICOTINE POLACRILEX 2 MG GUM BUC PRN (21:23)
[2018-04-30] MEDS: PRENATAL VITAMINS W/ FOLIC ACID TABLET (FP) PO SCH (10:15)
[2018-04-30] MEDS: DARUNAVIR ETHANOLATE 800 MG TAB PO SCH (10:15)
[2018-04-30] MEDS: RITONAVIR 100 MG TABLET PO SCH (10:15)
[2018-04-30] MEDS: EMTRICITABINE 200MG/TENOFOVIR 300MG PO SCH (10:15)
[2018-04-30] MEDS: ALBUTEROL SO4 8 GM HFA INHALER IH PRN ×2 (10:16→21:35)
[2018-04-30] MEDS: NICOTINE 14 MG/24 HOURS TOPICAL PATCH TD SCH (10:16)
[2018-04-30] MEDS: QUEtiapine FUMARATE 50 MG TABLET PO SCH (21:35)
[2018-04-30] MEDS: THIAMINE HCL 100 MG TABLET (FP) PO SCH (21:35)
[2018-05-01 07:00] VITALS: BP 122/84; PULSE 112; TEMP 98
[2018-05-01] MEDS: ALBUTEROL SO4 8 GM HFA INHALER IH PRN (10:01)
[2018-05-01] MEDS: DARUNAVIR ETHANOLATE 800 MG TAB PO SCH (10:01)
[2018-05-01] MEDS: PRENATAL VITAMINS W/ FOLIC ACID TABLET (FP) PO SCH (10:01)
[2018-05-01] MEDS: NICOTINE 14 MG/24 HOURS TOPICAL PATCH TD SCH (10:02)
[2018-05-01] MEDS: EMTRICITABINE 200MG/TENOFOVIR 300MG PO SCH (10:02)
[2018-05-01] MEDS: RITONAVIR 100 MG TABLET PO SCH (10:02)
== END 2018-05-01 11:30 | disposition home or self-care (01) | DRG 772 ==
LOC: YASAS 17:56 → Y5N 17:57
PROVIDERS: ADMIT Psychiatry & Neurology Psychiatry; ATTEND Psychiatry & Neurology Psychiatry
PROC: HZ42ZZZ Group Counseling for Substance Abuse Treatment, Cognitive-Behavioral (ICD-10-PCS; principal; 2018-04-20)
DX: F10.20 Alcohol dependence, uncomplicated (principal); F14.20 Cocaine dependence, uncomplicated; F17.213 Nicotine dependence, cigarettes, with withdrawal; F19.282 Other psychoactive substance dependence with psychoactive substance-induced sleep disorder; Z21 Asymptomatic human immunodeficiency virus [HIV] infection status; J45.20 Mild intermittent asthma, uncomplicated; D18.09 Hemangioma of other sites; R76.11 Nonspecific reaction to tuberculin skin test without active tuberculosis

== ENCOUNTER 2018-10-14 09:59 | Inpatient (IN) | payer OTHER ==
[2018-10-14 10:15] VITALS: BMI 20.2
--- NOTE | 2018-10-14 11:54 | HP ---
CIWA Score Nausea/Vomitin-No Nausea/No Vomiting Muscle Tremors: None Anxiety: 4-Mod. Anxious/Guarded Agitation: 1-Slight > Activity Paroxysmal Sweats: 2 Orientation: 2-Disoriented Date<2 days Tacttile Disturbances: 0-None Auditory Disturbances: 2-Mild Harshness/Frighten Visual Disturbances: 2-Mild Sensitivity Headache: 2-Mild CIWA-Ar Total Score: 15 - Admission Criteria OASAS Guidelines: Admission for Medically Managed Detox: Requires at least one of the followin. CIWA greater than 12 2. Seizures within the past 24 hours 3. Delirium tremens within the past 24 hours 4. Hallucinations within the past 24 hours 5. Acute intervention needed for co occurring medical disorder 6. Acute intervention needed for co occurring psychiatric disorder 7. Severe withdrawal that cannot be handled at a lower level of care (continued vomiting, continued diarrhea, abnormal vital signs) requiring intravenous medication and/or fluids 8. Admission ROS S - HPI Allergies/Adverse Reactions: Allergies Allergy/AdvReac Type Severity Reaction Status Date / Time turkey AdvReac Uncoded 10/14/18 11:07 History of Present Illness: pt here requesting detox from etoh use , reports 1 pint/day and several 16- oz cans of beer /day , first age of use 16 , longest sobriety 4 years ago x 3 .5 years " I had the will, plus my mother was dying " , latest use this morning, current symptoms as above , denies seizures , blackouts , + tremors sometimes , starts drinking upon awakening 10-11 am. cocaine : " depends how much money I have " , 40-300 $ /day denies IVDU , latest use yesterday cannabus _ denies tobacco 1/ ppd . PMHX : asthma ( dx age 20 , N/ NI ) , HIV + ( dx 1993 , RF= ST ) clinic [facility] , latest taken meds yesterday , bipolar d/o PSHx : hemangioma of the mouth 2017 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 SHx : lives alone , on SSI since 2001 . Exam Limitations: Clinical Condition - Ebola screening Have you traveled outside of the country in the last 21 days: No Have you had contact with anyone from an Ebola affected area: No Have you been sick,other than usual withdrawal symptoms: No Do you have a fever: No - Review of Systems Constitutional: See HPI EENT: reports: See HPI, Other (hoarse voice since today) Respiratory: reports: See HPI Cardiac: reports: No Symptoms Reported GI: reports: No Symptoms Reported : reports: No Symptoms Reported Musculoskeletal: reports: No Symptoms Reported Integumentary: reports: No Symptoms Reported Neuro: reports: See HPI Endocrine: reports: No Symptoms Reported Psychiatric: reports: Orientated x3, Agitated, Anxious Patient History - Patient Medical History Hx Anemia: No Hx Asthma: Yes Hx Chronic Obstructive Pulmonary Disease (COPD): No Hx Cancer: No Hx Cardiac Disorders: No Hx Congestive Heart Failure: No Hx Hypertension: No Hx Hypercholesterolemia: No Hx Pacemaker: No HX Cerebrovascular Accident: No Hx Seizures: No Hx Dementia: No Hx Diabetes: No Hx Gastrointestinal Disorders: No Hx Liver Disease: No Hx Genitourinary Disorders: No Hx Sexually Transmitted Disorders: No Hx Renal Disease (ESRD): No Hx Thyroid Disease: No Hx Human Immunodeficiency Virus (HIV): Yes (DX: 1993 CD4:325 2 MONTHS AGO ) Hx Hepatitis C: No Hx Depression: Yes Hx Suicide Attempt: No Hx Bipolar Disorder: No Hx Schizophrenia: No - Patient Surgical History Past Surgical History: Yes Hx Neurologic Surgery: No Hx Cataract Extraction: No Hx Cardiac Surgery: No Hx Lung Surgery: No Hx Breast Surgery: No Hx Breast Biopsy: No Hx Abdominal Surgery: No Hx Appendectomy: No Hx Cholecystectomy: No Hx Genitourinary Surgery: No Hx Orthopedic Surgery: No Other Surgical History: Hemangioma of face Anesthesia Reaction: No - PPD History Documented Results: Positive w/proof Implanted On Prior [facility] Admission?: No Results: NEED CXR - Reproductive History Patient : No - Smoking Cessation Smoking history: Current every day smoker Have you smoked in the past 12 months: Yes Aproximately how many cigarettes per day: 4 Hx Chewing Tobacco Use: No Initiated information on smoking cessation: No - Substances Abused Alcohol Route: Oral Frequency: Daily Amount used: 2 pts. vodka, 1 six beers ( 12-16 oz cans). Age of first use: 16 Date of Last Use: 10/14/18 Crack Route: Smoking Frequency: Daily Amount used: $50 Age of first use: 20 Date of Last Use: 10/12/18 Family Disease History - Family Disease History Family Disease History: Diabetes: Grandparent ( ), Mother ( ), Heart Disease: Grandparent, Father ( ), CA: Mother, Respiratory: Grandparent, Mother, Other: Father Admission Physical Exam BHS - Vital Signs Vital Signs: Vital Signs - 24 hr 10/14/18 10:12 Temperature 97.8 F Pulse Rate 92 H Respiratory 18 Rate Blood Pressure 123/93 - Physical General Appearance: Yes: Disheveled, Mild Distress, Anxious HEENTM: Yes: EOMI, Hearing grossly Normal, Normocephalic, Normal Voice, Muffled/ Hoarse Voice, Other (scarring from surgery) Respiratory: Yes: Chest Non-Tender, Lungs Clear, Rhonchi (scattered) Neck: Yes: No masses,lesions,Nodules, Trachea in good position Cardiology: Yes: Regular Rhythm, Regular Rate, S1, S2, Tachycardia Abdominal: Yes: Non Tender, Soft Genitourinary: Yes: Within Normal Limits Back: Yes: Normal Inspection Musculoskeletal: Yes: full range of Motion, Gait Steady Extremities: Yes: Normal Capillary Refill, Non-Tender Neurological: Yes: Alert, Motor Strength 5/5 Integumentary: Yes: Normal Color - Diagnostic (1) Alcohol dependence with withdrawal Current Visit: Yes Status: Acute Qualifiers: Complication of substance-induced condition: uncomplicated Qualified Code(s ): F10.230 - Alcohol dependence with withdrawal, uncomplicated (2) Cocaine dependence Current Visit: Yes Status: Chronic Qualifiers: Substance use status: uncomplicated Qualified Code(s): F14.20 - Cocaine dependence, uncomplicated (3) Nicotine dependence Current Visit: Yes Status: Chronic Qualifiers: Nicotine product type: cigarettes BHS Breath Alcohol Content Breath Alcohol Content: 0 Urine Drug Screen - Results Drug Screen Negative: No Urine Drug Screen Results: THC-Marijuana, HELGA-Cocaine Inpatient Rehab Admission - Rehab Decision to Admit Inpatient rehab admission?: No
[2018-10-14] MEDS ORDERED: guaiFENesin 200 MG/10 ML 10 ML UNIT-DOSE CUPS PO PRN (12:00)
[2018-10-14] MEDS ORDERED: MAGNESIUM CITRATE 300 ML BOTTLE PO PRN (12:00)
[2018-10-14] MEDS ORDERED: MELATONIN 5 MG TABLETS PO PRN (12:00)
[2018-10-14] MEDS ORDERED: NICOTINE POLACRILEX 2 MG GUM BUC PRN (12:00)
[2018-10-14] MEDS ORDERED: chlordiazePOXIDE HCL 10 MG CAPSULE PO PRN (12:00)
[2018-10-14] MEDS ORDERED: IBUPROFEN 400 MG TABLET (FP) PO PRN (12:00)
[2018-10-14] MEDS ORDERED: ACETAMINOPHEN 325 MG TABLET (FP) PO PRN ×2 (12:00)
[2018-10-14] MEDS ORDERED: BISMUTH SUBSALICYLATE 262 MG/15 ML BTL PO PRN (12:00)
[2018-10-14] MEDS ORDERED: P-EPHED 60MG/TRIPROLIDI 2.5MG TABLET PO PRN (12:00)
[2018-10-14] MEDS ORDERED: MAG HYDROX/AL HYDROX/SIMETH 30 ML UNIT-DOSE CUP PO PRN (12:00)
[2018-10-14] MEDS ORDERED: MAGNESIUM HYDROX 2400MG/30ML ORAL SUSPENSION 30 ML CUP PO PRN (12:00)
[2018-10-14] MEDS: chlordiazePOXIDE HCL 25 MG CAPSULE PO SCH ×2 (15:03→21:24)
[2018-10-14] MEDS: QUEtiapine FUMARATE 50 MG TABLET PO SCH (21:24)
[2018-10-14] MEDS: THIAMINE HCL 100 MG TABLET (FP) PO SCH (21:24)
[2018-10-14] MEDS: MENTHOL/PHENOL 1 EACH UD MM PRN (21:27)
[2018-10-15] MEDS: chlordiazePOXIDE HCL 25 MG CAPSULE PO SCH (05:41)
[2018-10-15] MEDS: EMTRICITABINE 200MG/TENOFOVIR 300MG PO SCH (08:03)
[2018-10-15] MEDS: RITONAVIR 100 MG TABLET PO SCH (08:03)
[2018-10-15] MEDS: DARUNAVIR ETHANOLATE 800 MG TAB PO SCH (08:04)
[2018-10-15] MEDS: PRENATAL VITAMINS W/ FOLIC ACID TABLET (FP) PO SCH (10:11)
[2018-10-15] MEDS: MENTHOL/PHENOL 1 EACH UD MM PRN (10:11)
[2018-10-15 11:18] LABS: HEMATOCRIT 41.7 % (35.4-49); HEMOGLOBIN 13.9 GM/dL (11.7-16.9); MCH 31.5 pg (25.7-33.7); MCHC 33.3 g/dl (32.0-35.9); MEAN CELL VOLUME 94.6 fl (80-96); MEAN PLT VOLUME 12.4 fl (7.5-11.1); PLATELET COUNT 158 K/MM3 (134-434); RBC 4.41 M/mm3 (4.00-5.60); RDW 14.8 % (11.9-15.9); WHITE BLOOD COUNT 3.4 K/mm3 (4.0-10.0)
[2018-10-15 11:55] LABS: ALK PHOS 121 U/L (45-117); ANION GAP 4 MMOL/L (8-16); BILIRUBIN,TOTAL 0.5 mg/dL (0.2-1); BLOOD UREA NITROGEN 15 mg/dL (7-18); CALCIUM 8.5 mg/dL (8.5-10.1); CHLORIDE 107 mmol/L (98-107); CO2 28 mmol/L (21-32); GLUCOSE,RANDOM 79 mg/dL (74-106); POTASSIUM 4.3 mmol/L (3.5-5.1); SGOT/AST 52 U/L (15-37); SGPT/ALT 29 U/L (13-61); SODIUM 139 mmol/L (136-145); TOT PROT 8.4 g/dl (6.4-8.2)
[2018-10-15] MEDS: chlordiazePOXIDE 5 MG CAPSULE PO SCH ×2 (12:43→21:55)
--- NOTE | 2018-10-15 17:13 | PN ---
[facility] CIWA - CIWA Score Nausea/Vomitin-No Nausea/No Vomiting Muscle Tremors: None Anxiety: 4-Mod. Anxious/Guarded Agitation: 1-Slight > Activity Paroxysmal Sweats: 3 Orientation: 0-Oriented Tacttile Disturbances: 2-Mild Itch/Numbness/Burn Auditory Disturbances: 2-Mild Harshness/Frighten Visual Disturbances: 1-Very Mild Sensitivity Headache: 0-None Present CIWA-Ar Total Score: 13 S Progress Note (SOAP) Subjective: Sweating, Fatigue, Anxious. Objective: PATIENT A & O X 3, OBSERVED AMBULATING ON UNIT. IN NO ACUTE DISTRESS. 10/15/18 17:12 Vital Signs Temperature 96.3 F L 10/15/18 13:54 Pulse Rate 108 H 10/15/18 13:54 Respiratory Rate 18 10/15/18 13:54 Blood Pressure 133/83 10/15/18 13:54 O2 Sat by Pulse Oximetry (%) Laboratory Tests 10/15/18 10/15/18 10/15/18 06:00 06:00 06:00 WBC 3.4 L RBC 4.41 Hgb 13.9 Hct 41.7 MCV 94.6 MCH 31.5 MCHC 33.3 RDW 14.8 Plt Count 158 MPV 12.4 H D Sodium 139 Potassium 4.3 Chloride 107 Carbon Dioxide 28 Anion Gap 4 L BUN 15 Creatinine 1.0 Creat Clearance w eGFR 78.16 Random Glucose 79 Calcium 8.5 Total Bilirubin 0.5 AST 52 H ALT 29 Alkaline Phosphatase 121 H Total Protein 8.4 H Albumin 3.0 L RPR Titer Nonreactive LABS NOTED. PATIENT HAS HAD LOW WBC LEVELS ON PREVIOUS ADMISSIONS. 10/15/18 17:12 Assessment: 10/15/18 17:12 WITHDRAWAL SYMPTOMS. LEUKOPENIA. 10/15/18 17:13 Plan: CONTINUE DETOX.
[2018-10-15] MEDS: THIAMINE HCL 100 MG TABLET (FP) PO SCH (21:55)
[2018-10-15] MEDS: QUEtiapine FUMARATE 50 MG TABLET PO SCH (21:55)
[2018-10-16] MEDS: chlordiazePOXIDE 5 MG CAPSULE PO SCH (05:39)
[2018-10-16] MEDS: EMTRICITABINE 200MG/TENOFOVIR 300MG PO SCH (07:38)
[2018-10-16] MEDS: DARUNAVIR ETHANOLATE 800 MG TAB PO SCH (07:38)
[2018-10-16] MEDS: RITONAVIR 100 MG TABLET PO SCH (07:40)
[2018-10-16] MEDS: MENTHOL/PHENOL 1 EACH UD MM PRN ×2 (07:44→22:41)
[2018-10-16] MEDS: PRENATAL VITAMINS W/ FOLIC ACID TABLET (FP) PO SCH (10:17)
[2018-10-16] MEDS ORDERED: LIDOCAINE VISCOUS 2% ORAL/TOP 20 ML UNIT-DOSE CUP MM PRN (12:02)
[2018-10-16] MEDS: chlordiazePOXIDE HCL 10 MG CAPSULE PO SCH ×2 (12:25→22:34)
[2018-10-16] MEDS ORDERED: chlordiazePOXIDE HCL 10 MG CAPSULE PO PRN (13:00)
--- NOTE | 2018-10-16 14:53 | PN ---
[facility] CIWA - CIWA Score Nausea/Vomitin-No Nausea/No Vomiting Muscle Tremors: None Anxiety: 3 Agitation: 0-Normal Activity Paroxysmal Sweats: 3 Orientation: 0-Oriented Tacttile Disturbances: 2-Mild Itch/Numbness/Burn Auditory Disturbances: 1-Very Mild Visual Disturbances: 2-Mild Sensitivity Headache: 0-None Present CIWA-Ar Total Score: 11 S Progress Note (SOAP) Subjective: Anxious, Sweating, Fatigue. Objective: PATIENT A & O X 3, OBSERVED AMBULATING ON UNIT. IN NO ACUTE DISTRESS. 10/16/18 14:53 Vital Signs Temperature 96.5 F L 10/16/18 13:36 Pulse Rate 107 H 10/16/18 13:36 Respiratory Rate 20 10/16/18 13:36 Blood Pressure 108/79 10/16/18 13:36 O2 Sat by Pulse Oximetry (%) Laboratory Tests 10/15/18 10/15/18 10/15/18 06:00 06:00 06:00 WBC 3.4 L RBC 4.41 Hgb 13.9 Hct 41.7 MCV 94.6 MCH 31.5 MCHC 33.3 RDW 14.8 Plt Count 158 MPV 12.4 H D Sodium 139 Potassium 4.3 Chloride 107 Carbon Dioxide 28 Anion Gap 4 L BUN 15 Creatinine 1.0 Creat Clearance w eGFR 78.16 Random Glucose 79 Calcium 8.5 Total Bilirubin 0.5 AST 52 H ALT 29 Alkaline Phosphatase 121 H Total Protein 8.4 H Albumin 3.0 L RPR Titer Nonreactive LABS NOTED. Assessment: 10/16/18 14:53 WITHDRAWAL SYMPTOMS. LEUKOPENIA. 10/16/18 14:54 Plan: CONTINUE DETOX.
[2018-10-16] MEDS: QUEtiapine FUMARATE 50 MG TABLET PO SCH (22:33)
[2018-10-16] MEDS: THIAMINE HCL 100 MG TABLET (FP) PO SCH (22:33)
[2018-10-17] MEDS: chlordiazePOXIDE HCL 10 MG CAPSULE PO SCH (05:19)
[2018-10-17 06:31] VITALS: BP 101/60; PULSE 105; TEMP 99
--- NOTE | 2018-10-17 08:36 | DS ---
[facility] Detox Discharge Summary Admission Date: 10/14/18 Discharge Date: 10/17/18 - History Present History: Alcohol Dependence Additional Comments: 53 years old male admitted on 10/14/18 for alcohol withdrawal stabilization completed detox regimen [facility] Pertinent Past History: keep medication list in wallet update medication when change the medication follow up with infectious disease specialist bring in lab result to follow up care appointment - Physical Exam Results Vital Signs: Vital Signs Temperature 99.0 F 10/17/18 06:30 Pulse Rate 105 H 10/17/18 06:30 Respiratory Rate 18 10/17/18 06:30 Blood Pressure 101/60 10/17/18 06:30 O2 Sat by Pulse Oximetry (%) Pertinent Admission Physical Exam Findings: alcohol withdrawal sx Laboratory Last Values WBC 3.4 K/mm3 (4.0-10.0) L 10/15/18 06:00 RBC 4.41 M/mm3 (4.00-5.60) 10/15/18 06:00 Hgb 13.9 GM/dL (11.7-16.9) 10/15/18 06:00 Hct 41.7 % (35.4-49) 10/15/18 06:00 MCV 94.6 fl (80-96) 10/15/18 06:00 MCH 31.5 pg (25.7-33.7) 10/15/18 06:00 MCHC 33.3 g/dl (32.0-35.9) 10/15/18 06:00 RDW 14.8 % (11.9-15.9) 10/15/18 06:00 Plt Count 158 K/MM3 (134-434) 10/15/18 06:00 MPV 12.4 fl (7.5-11.1) H D 10/15/18 06:00 Sodium 139 mmol/L (136-145) 10/15/18 06:00 Potassium 4.3 mmol/L (3.5-5.1) 10/15/18 06:00 Chloride 107 mmol/L (98-107) 10/15/18 06:00 Carbon Dioxide 28 mmol/L (21-32) 10/15/18 06:00 Anion Gap 4 MMOL/L (8-16) L 10/15/18 06:00 BUN 15 mg/dL (7-18) 10/15/18 06:00 Creatinine 1.0 mg/dL (0.55-1.3) 10/15/18 06:00 Creat Clearance w eGFR 78.16 (>60) 10/15/18 06:00 Random Glucose 79 mg/dL (74-106) 10/15/18 06:00 Calcium 8.5 mg/dL (8.5-10.1) 10/15/18 06:00 Total Bilirubin 0.5 mg/dL (0.2-1) 10/15/18 06:00 AST 52 U/L (15-37) H 10/15/18 06:00 ALT 29 U/L (13-61) 10/15/18 06:00 Alkaline Phosphatase 121 U/L (45-117) H 10/15/18 06:00 Total Protein 8.4 g/dl (6.4-8.2) H 10/15/18 06:00 Albumin 3.0 g/dl (3.4-5.0) L 10/15/18 06:00 RPR Titer Nonreactive (NONREACTIVE) 10/15/18 06:00 lab noted - Treatment Hospital Course: Detox Protocol Followed, Detoxed Safely, Responded well, Discharged Condition Good, Rehab Referral Accepted Patient has Accepted a [facility] Referral [facility]: [facility] - Medication Discharge Medications: Ambulatory Orders Darunavir Ethanolate [Prezista] 800 mg PO DAILY #30 tablet 05/01/18 Emtricitabine/Tenofovir [Truvada -] 1 tab PO DAILY #30 tablet 05/01/18 Quetiapine Fumarate [Seroquel -] 50 mg PO HS #30 tablet 05/01/18 Ritonavir [Norvir -] 100 mg PO DAILY #30 tab 05/01/18 - Diagnosis (1) Alcohol dependence with withdrawal Status: Acute Qualifiers: Complication of substance-induced condition: uncomplicated Qualified Code(s ): F10.230 - Alcohol dependence with withdrawal, uncomplicated (2) Asthma Status: Chronic Qualifiers: Asthma severity: mild Asthma persistence: intermittent Asthma complication type: uncomplicated Qualified Code(s): J45.20 - Mild intermittent asthma, uncomplicated (3) HIV (human immunodeficiency virus infection) Status: Chronic Qualifiers: HIV symptom status: asymptomatic Qualified Code(s): Z21 - Asymptomatic human immunodeficiency virus [HIV] infection status (4) History of positive PPD Status: Resolved (5) Nicotine dependence Status: Acute Qualifiers: Nicotine product type: cigarettes Substance use status: in withdrawal Qualified Code(s): F17.213 - Nicotine dependence, cigarettes, with withdrawal - AMA Did Patient Leave Against Medical Advice: No
[2018-10-17] MEDS: DARUNAVIR ETHANOLATE 800 MG TAB PO SCH (08:38)
[2018-10-17] MEDS: EMTRICITABINE 200MG/TENOFOVIR 300MG PO SCH (08:38)
[2018-10-17] MEDS: RITONAVIR 100 MG TABLET PO SCH (08:38)
[2018-10-17] MEDS: MENTHOL/PHENOL 1 EACH UD MM PRN (08:39)
== END 2018-10-17 09:17 | disposition home or self-care (01) | DRG 774 ==
LOC: YASAS 09:59 → Y3N 12:17
PROVIDERS: ADMIT Surgery; ATTEND Surgery
PROC: HZ2ZZZZ Detoxification Services for Substance Abuse Treatment (ICD-10-PCS; principal; 2018-10-14)
DX: F10.230 Alcohol dependence with withdrawal, uncomplicated (principal); F14.20 Cocaine dependence, uncomplicated; F17.213 Nicotine dependence, cigarettes, with withdrawal; Z21 Asymptomatic human immunodeficiency virus [HIV] infection status; J45.20 Mild intermittent asthma, uncomplicated; R76.11 Nonspecific reaction to tuberculin skin test without active tuberculosis; D72.819 Decreased white blood cell count, unspecified
CPT/HCPCS: 36415; 80053; 85027; 86593

== ENCOUNTER 2021-04-16 14:26 | Inpatient (IN) | payer OTHER ==
[2021-04-16 17:47] VITALS: BMI 16.9
[2021-04-16] MEDS ORDERED: NICOTINE 7 MG/24 HOURS TOPICAL PATCH TD PRN (17:47)
[2021-04-16] MEDS ORDERED: MAGNESIUM CITRATE 300 ML BOTTLE PO PRN (17:47)
[2021-04-16] MEDS ORDERED: NICOTINE 10 MG CARTRIDGE (INHALER) IH PRN (17:47)
[2021-04-16] MEDS ORDERED: ACETAMINOPHEN 325 MG TABLET (FP) PO PRN (17:47)
[2021-04-16] MEDS ORDERED: MAGNESIUM HYDROX 2400MG/30ML ORAL SUSPENSION 30 ML CUP PO PRN (17:47)
[2021-04-16] MEDS ORDERED: BISMUTH SUBSALICYLATE 524 MG/30 ML PO PRN (17:47)
[2021-04-16] MEDS ORDERED: MENTHOL/PHENOL 1 EACH UD MM PRN (17:47)
[2021-04-16] MEDS ORDERED: MAG HYDROX/AL HYDROX/SIMETH 30 ML UNIT-DOSE CUP PO PRN (17:47)
[2021-04-16] MEDS ORDERED: METHOCARBAMOL 500 MG TABLET PO PRN (17:47)
[2021-04-16] MEDS ORDERED: IBUPROFEN 400 MG TABLET (FP) PO PRN (17:47)
[2021-04-16] MEDS ORDERED: ONDANSETRON *ODT* 4 MG TABLET SL PRN (17:47)
[2021-04-16] MEDS ORDERED: LORazepam 1 MG TABLET PO PRN (18:52)
[2021-04-16] MEDS: LORazepam 2 MG TABLET PO SCH ×2 (19:36→23:54)
[2021-04-16] MEDS: hydrOXYzine PAMOATE 25 MG CAPSULE (FP) PO SCH ×2 (19:36→23:55)
[2021-04-16] MEDS: MELATONIN 5 MG TABLETS PO SCH (23:54)
[2021-04-16] MEDS: THIAMINE HCL 100 MG TABLET (FP) PO SCH (23:55)
[2021-04-17] MEDS: LORazepam 2 MG TABLET PO SCH ×4 (05:48→22:14)
[2021-04-17] MEDS: hydrOXYzine PAMOATE 25 MG CAPSULE (FP) PO SCH ×5 (06:04→22:14)
[2021-04-17 10:28] LABS: HEMATOCRIT 30.3 % (35.4-49); HEMOGLOBIN 10.1 GM/dL (11.7-16.9); MCH 29.9 pg (25.7-33.7); MCHC 33.4 g/dl (32.0-35.9); MEAN CELL VOLUME 89.4 fl (80-96); MEAN PLT VOLUME 8.2 fl (7.5-11.1); PLATELET COUNT 249 10^3/uL (134-434); RBC 3.39 M/mm3 (4.00-5.60); RDW 14.3 % (11.9-15.9); WHITE BLOOD COUNT 5.1 K/mm3 (4.0-10.0)
[2021-04-17 10:34] LABS: ALBUMIN 2.4 g/dl (3.4-5.0); BLOOD UREA NITROGEN 12.8 mg/dL (7-18); CALCIUM 8.6 mg/dL (8.5-10.1)
[2021-04-17 10:35] LABS: CREATININE 0.9 mg/dL (0.55-1.3)
[2021-04-17 10:37] LABS: BILIRUBIN,TOTAL 0.4 mg/dL (0.2-1); TOT PROT 8.1 g/dl (6.4-8.2)
[2021-04-17] MEDS: ACETAMINOPHEN 325 MG TABLET (FP) PO PRN (17:54)
[2021-04-17] MEDS: ALBUTEROL SO4 HFA INHALER IH PRN ×2 (17:56→22:15)
[2021-04-17] MEDS: THIAMINE HCL 100 MG TABLET (FP) PO SCH (22:14)
[2021-04-17] MEDS: QUEtiapine FUMARATE 50 MG TABLET PO SCH (22:14)
[2021-04-17] MEDS: MELATONIN 5 MG TABLETS PO SCH (22:15)
[2021-04-18] MEDS: hydrOXYzine PAMOATE 25 MG CAPSULE (FP) PO SCH ×5 (06:03→22:41)
[2021-04-18] MEDS: LORazepam 1 MG TABLET PO SCH ×4 (06:03→22:41)
[2021-04-18] MEDS: SULFAMETHOXAZOLE/TRIMETHOPRIM 800MG/160MG D.S. TABLET PO SCH (11:02)
[2021-04-18] MEDS: BICTEGRAV/EMTRICIT/TENOFOV (BIKTARVY) 50-200-25 MG TABLET PO SCH (14:07)
[2021-04-18] MEDS: CLOTRIMAZOLE 10 MG TROCHE PO SCH ×3 (14:08→22:41)
[2021-04-18] MEDS: ACETAMINOPHEN 325 MG TABLET (FP) PO PRN (17:54)
[2021-04-18] MEDS: THIAMINE HCL 100 MG TABLET (FP) PO SCH (22:41)
[2021-04-18] MEDS: MELATONIN 5 MG TABLETS PO SCH (22:41)
[2021-04-18] MEDS: QUEtiapine FUMARATE 50 MG TABLET PO SCH (22:41)
[2021-04-19] MEDS ORDERED: LORazepam 0.5 MG TABLET PO PRN
[2021-04-19] MEDS: LORazepam 0.5 MG TABLET PO SCH ×4 (05:58→22:12)
[2021-04-19] MEDS: CLOTRIMAZOLE 10 MG TROCHE PO SCH ×5 (05:58→22:13)
[2021-04-19] MEDS: hydrOXYzine PAMOATE 25 MG CAPSULE (FP) PO SCH ×5 (06:54→22:12)
[2021-04-19] MEDS ORDERED: COVID-19 VAC,AD26(JANSSEN)/PF 0.5 ML IM ONE (10:00)
[2021-04-19] MEDS: SULFAMETHOXAZOLE/TRIMETHOPRIM 800MG/160MG D.S. TABLET PO SCH (10:29)
[2021-04-19] MEDS: BICTEGRAV/EMTRICIT/TENOFOV (BIKTARVY) 50-200-25 MG TABLET PO SCH (10:29)
[2021-04-19] MEDS: THIAMINE HCL 100 MG TABLET (FP) PO SCH (22:11)
[2021-04-19] MEDS: QUEtiapine FUMARATE 50 MG TABLET PO SCH (22:11)
[2021-04-19] MEDS: MELATONIN 5 MG TABLETS PO SCH (22:12)
[2021-04-20] MEDS ORDERED: LORazepam 0.5 MG TABLET PO ONE (05:00)
[2021-04-20] MEDS: CLOTRIMAZOLE 10 MG TROCHE PO SCH ×2 (05:57→10:37)
[2021-04-20] MEDS: hydrOXYzine PAMOATE 25 MG CAPSULE (FP) PO SCH ×2 (05:57→10:37)
[2021-04-20 09:47] VITALS: BP 98/64; PULSE 58; TEMP 97
[2021-04-20] MEDS: SULFAMETHOXAZOLE/TRIMETHOPRIM 800MG/160MG D.S. TABLET PO SCH (10:37)
[2021-04-20] MEDS: BICTEGRAV/EMTRICIT/TENOFOV (BIKTARVY) 50-200-25 MG TABLET PO SCH (10:37)
[2021-04-20 14:49] LABS: BLOOD UREA NITROGEN 10.4 mg/dL (7-18); CALCIUM 8.9 mg/dL (8.5-10.1)
[2021-04-20 14:53] LABS: CREATININE 0.9 mg/dL (0.55-1.3)
== END 2021-04-20 12:20 | disposition home or self-care (01) | DRG 774 ==
LOC: YASAS 14:26 → Y3N 18:16
PROVIDERS: ADMIT Allergy & Immunology; ATTEND Allergy & Immunology
PROC: HZ2ZZZZ Detoxification Services for Substance Abuse Treatment (ICD-10-PCS; principal; 2021-04-16)
DX: F10.230 Alcohol dependence with withdrawal, uncomplicated (principal); F14.20 Cocaine dependence, uncomplicated; F19.24 Other psychoactive substance dependence with psychoactive substance-induced mood disorder; B20 Human immunodeficiency virus [HIV] disease; B37.0 Candidal stomatitis; Z86.59 Personal history of other mental and behavioral disorders
CPT/HCPCS: 0031A; 36415; 71046-TC-FY; 80048; 80053; 85027; 86780; 91303; C9803; U0003; U0005

== ENCOUNTER 2024-02-04 13:51 | Inpatient (IN) | payer OTHER ==
[2024-02-04 14:26] VITALS: BMI 18.1
[2024-02-04] MEDS ORDERED: MAG HYDROX/AL HYDROX/SIMETH 30 ML UNIT-DOSE CUP PO PRN (14:52)
[2024-02-04] MEDS ORDERED: NALOXONE (NARCAN) HCL 4 MG/0.1 ML SPRAY NS PRN (14:52)
[2024-02-04] MEDS ORDERED: LOPERAMIDE HCL 2 MG CAPSULE PO PRN (14:52)
[2024-02-04] MEDS ORDERED: NALOXONE HCL 0.4 MG/ML VIAL IM PRN (14:52)
[2024-02-04] MEDS ORDERED: DICYCLOMINE HCL 10 MG CAPSULE PO PRN (14:52)
[2024-02-04] MEDS ORDERED: ONDANSETRON *ODT* 4 MG TABLET SL PRN (14:52)
[2024-02-04] MEDS ORDERED: ACETAMINOPHEN 325 MG TABLET (FP) PO PRN (14:52)
[2024-02-04] MEDS ORDERED: guaiFENesin 600 MG TABLET.ER (FP) PO PRN (14:52)
[2024-02-04] MEDS ORDERED: hydrOXYzine PAMOATE 25 MG CAPSULE (FP) PO PRN (14:52)
[2024-02-04] MEDS ORDERED: BISMUTH SUBSALICYLATE 524 MG/30 ML PO PRN (14:52)
[2024-02-04] MEDS ORDERED: chlordiazePOXIDE HCL 25 MG CAPSULE PO PRN (14:52)
[2024-02-04] MEDS ORDERED: IBUPROFEN 600 MG TABLET (FP) PO PRN (14:52)
[2024-02-04] MEDS ORDERED: BENZOCAINE/MENTHOL (CHLORASEPTIC ) LOZENGE MM PRN (14:52)
[2024-02-04] MEDS ORDERED: MAGNESIUM HYDROX 2400MG/30ML ORAL SUSPENSION 30 ML CUP PO PRN (14:52)
[2024-02-04] MEDS ORDERED: IBUPROFEN 400 MG TABLET (FP) PO PRN (14:52)
[2024-02-04] MEDS ORDERED: POLYETHYLENE GLYCOL (HEALTHYLAX) 3350 17 GM PACKET PO PRN (14:52)
[2024-02-04] MEDS: NICOTINE 14 MG/24 HOURS TOPICAL PATCH TD SCH (16:00)
[2024-02-04] MEDS: PRENATAL VITAMINS W/ FOLIC ACID TABLET (FP) PO SCH (16:15)
[2024-02-04] MEDS: chlordiazePOXIDE HCL 25 MG CAPSULE PO SCH (17:08)
[2024-02-04] MEDS ORDERED: chlordiazePOXIDE HCL 25 MG CAPSULE ONE (17:10)
[2024-02-04] MEDS ORDERED: NICOTINE 14 MG/24 HOURS TOPICAL PATCH TD ONE (17:11)
[2024-02-04] MEDS: MELATONIN 5 MG TABLETS PO SCH (22:53)
[2024-02-04] MEDS: METHOCARBAMOL 500 MG TABLET PO PRN (22:54)
[2024-02-04] MEDS: THIAMINE 100 MG TABLET PO SCH (22:54)
[2024-02-05] MEDS: BENZONATATE 200 MG CAPSULE PO PRN (06:55)
[2024-02-05] MEDS: RITONAVIR 100 MG TABLET PO SCH (11:00)
[2024-02-05] MEDS: DARUNAVIR ETHANOLATE 800 MG TAB PO SCH (11:00)
[2024-02-05] MEDS ORDERED: guaiFENesin 200 MG/10 ML 10 ML UNIT-DOSE CUPS PO PRN (11:20)
[2024-02-05 11:59] LABS: CHLORIDE 101 mmol/L (98-107); POTASSIUM 4.3 mmol/L (3.5-5.1); SODIUM 136 mmol/L (136-145)
[2024-02-05 12:03] LABS: ALBUMIN 2.8 g/dl (3.4-5.0); HEMOGLOBIN 9.9 GM/dL (11.7-16.9); MCH 29.2 pg (25.7-33.7); MCHC 33.1 g/dl (32.0-35.9); MEAN CELL VOLUME 88.1 fl (80-96); MEAN PLT VOLUME 8.9 fl (7.5-11.1); PLATELET COUNT 233 10^3/uL (134-434); RDW 17.8 % (11.9-15.9); WHITE BLOOD COUNT 6.6 K/mm3 (4.0-10.0)
[2024-02-05 12:04] LABS: ANION GAP 6 mmol/L (4-13); CO2 30 mmol/L (21-32); GLUCOSE,RANDOM 137 mg/dL (74-106)
[2024-02-05 12:05] LABS: CALCIUM 8.7 mg/dL (8.5-10.1)
[2024-02-05 12:08] LABS: CREATININE 0.9 mg/dL (0.55-1.3); SGOT/AST 27 U/L (15-37); SGPT/ALT 16 U/L (13-61)
[2024-02-05 12:09] LABS: BILIRUBIN,TOTAL 0.4 mg/dL (0.2-1); TOT PROT 8.3 g/dl (6.4-8.2)
[2024-02-05 12:10] LABS: ALK PHOS 106 U/L (45-117)
[2024-02-05 12:40] VITALS: RESP 16
[2024-02-05 21:39] VITALS: BP 90/59; PULSE 102; TEMP 98.7
[2024-02-06] MEDS: QUEtiapine FUMARATE 50 MG TABLET PO SCH (00:10)
[2024-02-06] MEDS: chlordiazePOXIDE HCL 25 MG CAPSULE PO SCH (05:10)
[2024-02-07] MEDS ORDERED: chlordiazePOXIDE HCL 10 MG CAPSULE PO PRN
[2024-02-07] MEDS ORDERED: chlordiazePOXIDE HCL 10 MG CAPSULE PO SCH (05:00)
[2024-02-08] MEDS ORDERED: chlordiazePOXIDE HCL 10 MG CAPSULE PO SCH (05:00)
[2024-02-09] MEDS ORDERED: chlordiazePOXIDE HCL 10 MG CAPSULE PO ONE (05:00)
== END 2024-02-06 07:17 | disposition short-term general hospital (02) | DRG 774 ==
LOC: YASAS 13:51 → Y3N 16:55
PROVIDERS: ADMIT Allergy & Immunology; ATTEND Surgery
PROC: HZ2ZZZZ Detoxification Services for Substance Abuse Treatment (ICD-10-PCS; principal; 2024-02-04)
DX: F10.230 Alcohol dependence with withdrawal, uncomplicated (principal); F14.20 Cocaine dependence, uncomplicated; F17.210 Nicotine dependence, cigarettes, uncomplicated; F19.24 Other psychoactive substance dependence with psychoactive substance-induced mood disorder; F39 Unspecified mood [affective] disorder; B20 Human immunodeficiency virus [HIV] disease; J18.9 Pneumonia, unspecified organism; R62.7 Adult failure to thrive; Z68.1 Body mass index [BMI] 19.9 or less, adult; R05.9 Cough, unspecified; R06.02 Shortness of breath; Z86.11 Personal history of tuberculosis
CPT/HCPCS: 36415; 71046-TC-FY; 80053; 80305; 80307; 82140; 85027; 86780; 93005; 93010

== ENCOUNTER 2024-02-05 22:54 | Inpatient (IN) | payer OTHER ==
[2024-02-06] MEDS ORDERED: AZITHROMYCIN IVPB 500 MG/250 ML BAG IVPB ONE (00:49)
[2024-02-06] MEDS ORDERED: CEFTRIAXONE 1 GM/50 ML BAG ONE (00:49)
[2024-02-06] MEDS: AZITHROMYCIN IVPB 500 MG in DEXTROSE 5%-WATER - 250 ML IVPB ONE (01:21)
[2024-02-06] MEDS: CEFTRIAXONE 1,000 MG in DEXTROSE 5%-WATER - 50 ML IVPB ONE (01:21)
[2024-02-06] MEDS ORDERED: LORazepam 1 MG TABLET PO PRN (05:49)
[2024-02-06] MEDS ORDERED: IBUPROFEN 600 MG TABLET (FP) PO PRN (06:37)
[2024-02-06] MEDS ORDERED: NICOTINE POLACRILEX 4 MG GUM BUC PRN (06:37)
[2024-02-06] MEDS ORDERED: hydrOXYzine PAMOATE 25 MG CAPSULE (FP) PO PRN (06:37)
[2024-02-06] MEDS ORDERED: POLYETHYLENE GLYCOL (HEALTHYLAX) 3350 17 GM PACKET PO PRN (06:37)
[2024-02-06] MEDS ORDERED: NICOTINE POLACRILEX 4 MG LOZENGE BC PRN (06:37)
[2024-02-06] MEDS ORDERED: BENZONATATE 200 MG CAPSULE PO PRN (06:37)
[2024-02-06] MEDS ORDERED: METHOCARBAMOL 500 MG TABLET PO PRN (06:37)
[2024-02-06] MEDS ORDERED: MAGNESIUM HYDROX 2400MG/30ML ORAL SUSPENSION 30 ML CUP PO PRN (06:37)
[2024-02-06] MEDS ORDERED: IBUPROFEN 400 MG TABLET (FP) PO PRN (06:37)
[2024-02-06] MEDS ORDERED: ONDANSETRON *ODT* 4 MG TABLET SL PRN (06:37)
[2024-02-06] MEDS ORDERED: LOPERAMIDE HCL 2 MG CAPSULE PO PRN (06:37)
[2024-02-06] MEDS ORDERED: MAG HYDROX/AL HYDROX/SIMETH 30 ML UNIT-DOSE CUP PO PRN (06:37)
[2024-02-06] MEDS ORDERED: BISMUTH SUBSALICYLATE 524 MG/30 ML PO PRN (06:37)
[2024-02-06] MEDS ORDERED: DICYCLOMINE HCL 10 MG CAPSULE PO PRN (06:37)
[2024-02-06 06:50] LABS: PH,URINE 6.5 (5.0-8.0); URINE APPEARANCE CLEAR; URINE BILIRUBIN NEGATIVE (NEGATIVE); URINE COLOR YELLOW; URINE GLUCOSE (UA) NEGATIVE (NEGATIVE); URINE KETONE NEGATIVE (NEGATIVE); URINE LEUK ESTERASE NEGATIVE (NEGATIVE); URINE NITRITE NEGATIVE (NEGATIVE); URINE PROTEIN NEGATIVE (NEGATIVE); URINE UROBILINOGEN 0.2 mg/dL (0.2-1.0)
[2024-02-06] MEDS: INSULIN ASPART SLIDING SCALE (NOVOLOG) 1 VIAL SQ SCH (09:03)
[2024-02-06 09:30] VITALS: BMI 16.4
[2024-02-06 09:30] LABS: HEMATOCRIT 22.2 % (35.4-49); HEMOGLOBIN 7.5 GM/dL (11.7-16.9); MCH 29.9 pg (25.7-33.7); MEAN CELL VOLUME 88.2 fl (80-96); PLATELET COUNT 296 10^3/uL (134-434); RBC 2.52 M/mm3 (4.00-5.60); RDW 17.9 % (11.9-15.9); RETICULOCYTES 0.88 % (0.5-1.5); WHITE BLOOD COUNT 6.9 K/mm3 (4.0-10.0)
[2024-02-06] MEDS: SULFAMETHOXAZOLE/TRIMETHOPRIM 800MG/160MG D.S. TABLET PO SCH (09:36)
[2024-02-06] MEDS: THIAMINE 100 MG TABLET PO SCH (09:36)
[2024-02-06] MEDS: NICOTINE 7 MG/24 HOURS TOPICAL PATCH TD SCH (09:36)
[2024-02-06] MEDS: guaiFENesin 600 MG TABLET.ER (FP) PO PRN (09:50)
[2024-02-06 10:58] LABS: POTASSIUM 4.2 mmol/L (3.5-5.1)
[2024-02-06 11:00] LABS: ALBUMIN 2.6 g/dl (3.4-5.0); CALCIUM 8.7 mg/dL (8.5-10.1)
[2024-02-06] MEDS: LORazepam 1 MG TABLET PO SCH (11:00)
[2024-02-06 11:01] LABS: BLOOD UREA NITROGEN 11.8 mg/dL (7-18); MAGNESIUM 2.2 mg/dL (1.8-2.4)
[2024-02-06 11:03] LABS: CREATININE 0.6 mg/dL (0.55-1.3)
[2024-02-06 11:04] LABS: PHOSPHOROUS 3.3 mg/dL (2.5-4.9)
[2024-02-06 11:05] LABS: BILIRUBIN,TOTAL 0.3 mg/dL (0.2-1); TOT PROT 8.2 g/dl (6.4-8.2)
[2024-02-06] MEDS ORDERED: guaiFENesin/D-METHORPHAN HB 10 ML UNIT-DOSE CUPS PO PRN (11:06)
[2024-02-06 11:22] LABS: ANISOCYTOSIS 0; MACROCYTOSIS 0
[2024-02-06] MEDS: BICTEGRAV/EMTRICIT/TENOFOV (BIKTARVY) 50-200-25 MG TABLET PO SCH (11:29)
[2024-02-06] MEDS: PRENATAL VITAMINS W/ FOLIC ACID TABLET (FP) PO SCH (11:29)
[2024-02-06] MEDS: PETROLATUM, WHITE 30 GM TUBE TP SCH (17:49)
[2024-02-06] MEDS: SODIUM CHLORIDE 1,000 ML IV SCH (17:57)
[2024-02-06] MEDS ORDERED: QUEtiapine FUMARATE 25 MG TABLET ONE (21:38)
[2024-02-06] MEDS: QUEtiapine FUMARATE 50 MG TABLET PO SCH (22:38)
[2024-02-06] MEDS: MELATONIN 5 MG TABLETS PO SCH (22:38)
[2024-02-07] MEDS: ALBUTEROL SO4 2.5/IPRATROPIUM 0.5 INH SOL 3 ML VIAL.NEB. NEB PRN (07:37)
[2024-02-07 10:10] LABS: HEMATOCRIT 29.6 % (35.4-49); HEMOGLOBIN 9.7 GM/dL (11.7-16.9); MCH 28.8 pg (25.7-33.7); MCHC 32.6 g/dl (32.0-35.9); MEAN CELL VOLUME 88.1 fl (80-96); MEAN PLT VOLUME 8.1 fl (7.5-11.1); PLATELET COUNT 272 10^3/uL (134-434); RBC 3.36 M/mm3 (4.00-5.60); RDW 18.3 % (11.9-15.9); WHITE BLOOD COUNT 4.9 K/mm3 (4.0-10.0)
[2024-02-07 10:24] LABS: INR 0.91 (0.83-1.09); PROTHROMBIN TIME (PATIENT) 10.5 SEC (9.7-13.0)
[2024-02-07 10:27] LABS: ACTIVATED PTT 31.3 SECONDS (25.2-36.5)
[2024-02-07] MEDS: ENOXAPARIN NA (PORCINE) 40 MG/0.4 ML DISP.SYRIN SQ SCH (10:27)
[2024-02-07 10:28] LABS: POTASSIUM 4.2 mmol/L (3.5-5.1)
[2024-02-07 10:29] LABS: ALBUMIN 2.4 g/dl (3.4-5.0); BLOOD UREA NITROGEN 16.6 mg/dL (7-18); CALCIUM 8.2 mg/dL (8.5-10.1); MAGNESIUM 2.1 mg/dL (1.8-2.4)
[2024-02-07 10:33] LABS: CREATININE 0.8 mg/dL (0.55-1.3); PHOSPHOROUS 2.9 mg/dL (2.5-4.9)
[2024-02-07 10:35] LABS: BILIRUBIN,TOTAL 0.2 mg/dL (0.2-1); TOT PROT 7.8 g/dl (6.4-8.2)
[2024-02-07 11:02] LABS: ANISOCYTOSIS 0; MACROCYTOSIS 0
[2024-02-07] MEDS: CEFTRIAXONE 1 GM in DEXTROSE 5%-WATER - 50 ML IVPB SCH (11:42)
[2024-02-07] MEDS: AZITHROMYCIN IVPB 250 MG in DEXTROSE 5%-WATER - 250 ML IVPB SCH (12:01)
[2024-02-08] MEDS: guaiFENesin 200 MG/10 ML 10 ML UNIT-DOSE CUPS PO PRN (03:58)
[2024-02-08] MEDS: LORazepam 1 MG TABLET PO SCH (05:54)
[2024-02-08] MEDS ORDERED: LORazepam 1 MG TABLET PO PRN (08:00)
[2024-02-08] MEDS: BENZOCAINE/MENTHOL (CHLORASEPTIC ) LOZENGE MM PRN (11:01)
[2024-02-08] MEDS ORDERED: DEXTROSE 5%-WATER - 1,000 ML IV SCH (15:45)
[2024-02-08] MEDS ORDERED: QUEtiapine FUMARATE 25 MG TABLET ONE (21:26)
[2024-02-09] MEDS ORDERED: LORazepam 0.5 MG TABLET PO PRN
[2024-02-09] MEDS ORDERED: LORazepam 0.5 MG TABLET PO SCH (05:00)
[2024-02-09 08:40] LABS: HEMATOCRIT 29.1 % (35.4-49); HEMOGLOBIN 9.7 GM/dL (11.7-16.9); MCH 29.5 pg (25.7-33.7); MCHC 33.5 g/dl (32.0-35.9); MEAN CELL VOLUME 88.1 fl (80-96); MEAN PLT VOLUME 7.9 fl (7.5-11.1); PLATELET COUNT 328 10^3/uL (134-434); RDW 17.8 % (11.9-15.9); WHITE BLOOD COUNT 5.4 K/mm3 (4.0-10.0)
[2024-02-09 08:58] LABS: POTASSIUM 4.4 mmol/L (3.5-5.1)
[2024-02-09 09:02] LABS: ALBUMIN 2.5 g/dl (3.4-5.0); BLOOD UREA NITROGEN 15.4 mg/dL (7-18); CALCIUM 8.8 mg/dL (8.5-10.1); MAGNESIUM 2.2 mg/dL (1.8-2.4)
[2024-02-09 09:05] LABS: CREATININE 0.9 mg/dL (0.55-1.3)
[2024-02-09 09:07] LABS: BILIRUBIN,TOTAL 0.3 mg/dL (0.2-1)
[2024-02-09] MEDS ORDERED: QUEtiapine FUMARATE 25 MG TABLET ONE (21:18)
[2024-02-10] MEDS ORDERED: LORazepam 0.5 MG TABLET PO ONE (05:00)
[2024-02-10 10:18] LABS: HEMATOCRIT 33.2 % (35.4-49); HEMOGLOBIN 10.8 GM/dL (11.7-16.9); MCH 28.8 pg (25.7-33.7); MCHC 32.5 g/dl (32.0-35.9); MEAN CELL VOLUME 88.8 fl (80-96); MEAN PLT VOLUME 8.7 fl (7.5-11.1); PLATELET COUNT 338 10^3/uL (134-434); RBC 3.74 M/mm3 (4.00-5.60); RDW 17.6 % (11.9-15.9); WHITE BLOOD COUNT 4.2 K/mm3 (4.0-10.0)
[2024-02-10 10:56] LABS: POTASSIUM 4.9 mmol/L (3.5-5.1)
[2024-02-10 10:58] LABS: BLOOD UREA NITROGEN 15.8 mg/dL (7-18); CALCIUM 9.3 mg/dL (8.5-10.1)
[2024-02-10 10:59] LABS: ALBUMIN 2.9 g/dl (3.4-5.0); MAGNESIUM 2.5 mg/dL (1.8-2.4)
[2024-02-10 11:01] LABS: PHOSPHOROUS 3.8 mg/dL (2.5-4.9)
[2024-02-10 11:02] LABS: CREATININE 1.1 mg/dL (0.55-1.3)
[2024-02-10 11:04] LABS: BILIRUBIN,TOTAL 0.2 mg/dL (0.2-1); TOT PROT 8.5 g/dl (6.4-8.2)
[2024-02-10] MEDS: SODIUM CHLORIDE 500 ML IV STA (13:22)
[2024-02-10] MEDS ORDERED: QUEtiapine FUMARATE 25 MG TABLET ONE (20:53)
[2024-02-10 21:09] VITALS: PULSE 110
[2024-02-11 10:01] LABS: HEMATOCRIT 33.2 % (35.4-49); MCH 28.8 pg (25.7-33.7); MEAN CELL VOLUME 87.3 fl (80-96); MEAN PLT VOLUME 7.7 fl (7.5-11.1); PLATELET COUNT 384 10^3/uL (134-434); RDW 17.5 % (11.9-15.9); WHITE BLOOD COUNT 5.1 K/mm3 (4.0-10.0)
[2024-02-11 10:12] LABS: POTASSIUM 4.8 mmol/L (3.5-5.1)
[2024-02-11 10:16] LABS: CALCIUM 9.7 mg/dL (8.5-10.1)
[2024-02-11 10:17] LABS: BLOOD UREA NITROGEN 17.7 mg/dL (7-18); MAGNESIUM 2.3 mg/dL (1.8-2.4)
[2024-02-11 10:19] LABS: CREATININE 1.1 mg/dL (0.55-1.3)
[2024-02-11 10:21] LABS: BILIRUBIN,TOTAL 0.2 mg/dL (0.2-1)
[2024-02-11 15:45] VITALS: BP 102/78; RESP 20; TEMP 99.5
== END 2024-02-11 15:30 | disposition home or self-care (01) | DRG 139 ==
LOC: EDBD → JER 22:54 → JERBED 02-06 04:13 → INTOOBSV 02-06 04:13 → UNDOADMOB 02-06 04:13 → J5S 02-06 08:23 → JERBED 02-06 08:23 → J5S 02-06 11:43 → JERBED 02-06 11:43 → J5S 02-07 08:37 → OBSVTOIN 02-09 13:34
PROVIDERS: ADMIT Internal Medicine
DX: J18.9 Pneumonia, unspecified organism (principal); E11.9 Type 2 diabetes mellitus without complications; F10.239 Alcohol dependence with withdrawal, unspecified; J45.909 Unspecified asthma, uncomplicated; Z21 Asymptomatic human immunodeficiency virus [HIV] infection status; F17.210 Nicotine dependence, cigarettes, uncomplicated; F31.9 Bipolar disorder, unspecified; D64.9 Anemia, unspecified; H54.40 Blindness, one eye, unspecified eye; B37.0 Candidal stomatitis; R13.10 Dysphagia, unspecified; E43 Unspecified severe protein-calorie malnutrition; Z68.1 Body mass index [BMI] 19.9 or less, adult; Q38.3 Other congenital malformations of tongue; T17.890A Other foreign object in other parts of respiratory tract causing asphyxiation, initial encounter; W44.8XXA Other foreign body entering into or through a natural orifice, initial encounter; Y92.9 Unspecified place or not applicable; Y99.9 Unspecified external cause status
CPT/HCPCS: 0241U-QW; 36415; 71045-TC-FY; 74230-TC-FY; 80053; 81003; 82728; 82962; 83540; 83550; 83735; 84100; 84466; 85025; 85027; 85045; 85610; 85730; 92611-GN; 94640; 97116-GP; 99285-25; G0378